=== PATIENT | male | born 1945 | race Caucasian/White ===

== ENCOUNTER 2018-01-15 14:25 | Emergency (ER) | payer MEDICARE, BC, SELFPAY ==
[2018-01-15] VITALS (29 sets, daily range): BP systolic 116–140; BP diastolic 61–99; PULSE 62–77; RESP 8–30; TEMP 36.8–36.9; O2SAT 96–99
--- NOTE | 2018-01-15 14:37 | DI.RAD_ITS ---
SYMPTOMS/DIAGNOSIS: CHEST PAIN, SHORTNESS OF BREATH, ? ACUTE DISEASE PA AND LATERAL CHEST: Comparison is made with 5Nov16. The heart size is normal. A pacemaker is noted, unchanged. The patient is status post CABG. The lungs show minimal right upper lobe scarring. IMPRESSION: No acute abnormality.
--- NOTE | 2018-01-15 14:40 | W.ED.GENAD ---
Discharge Plan Disposition Patient Disposition: HOME Condition: Stable Discharge Details Chief Complaint: SOB Clinical Impression: Dizziness, Dyspnea Primary Care Provider: Arianna Alvarado ED Provider: Haylie Cardozo Home Meds and New Rx's Prescriptions: Continue aspirin [Aspir-81] 81 MG tablet,delayed release (DR/EC) 1 tab PO DAILY RF: 0 ISOSORBIDE MONONITRATE 30 MG TAB.ER.24H 1 tab PO DAILY RF: 0 metformin 500 MG tablet 1,000 mg PO BID RF: 0 hydrocodone-acetaminophen 1 TAB tablet 1 tab PO Q6H PRNQty: 20 RF: 0 atorvastatin [Lipitor] 20 MG tablet 40 mg PO HS RF: 0 clopidogrel [Plavix] 75 mg Tablet 75 mg PO DAILY RF: 0 acetaminophen [Tylenol Extra Strength] 500 MG tablet 1,000 mg PO RF: 0 tamsulosin [Flomax] 0.4 MG capsule 0.4 mg PO DAILY Qty: 20 RF: 0 Discharge Instructions Instructions: Dizziness (ED) Additional Instructions: Take your regular medications as directed. Follow-up with your scheduled appointment with cardiology in 2 weeks. Call the cataloging assistant tomorrow to schedule an earlier appointment if indicated and to discuss interrogation of your pacemaker. Return immediately to the emergency department any worsening or new concerning symptoms. Discharge Data Discharge Physician: Haylie Cardozo Medical Decision Making 72-year-old male with a history of diabetes, CLL, Marcelo cell carcinoma, CABG, pacemaker, 3 cardiac stents who presents for an episode of vision closing in, dizziness and shortness of breath lasting 45 seconds prior to arrival. EKG on arrival notes a rate of 74, sinus, LAFB seen in previous, no acute ST elevation or depression, QTC 422, QRS 96. Patient states he has had no palpitations, chest pain, headache, unilateral weakness or numbness. Patient feels that his shortness of breath may have been due to anxiety due to the dizziness sensation. He denies any syncope. Presentation does not sound c/w ACS, arrhythmia, or cva. Normal heart rate, BP and oxygen saturation, brief episode of sob, no dvt/pe risk factors, so PE seems unlikely. Due to pt's history, will place an IV, labs, cxr, ekg. 1700 --labs and imaging reviewed and essentially unremarkable. Magnesium 1.6, will replete. First troponin negative. Chest x-ray and CT head negative. Plan is for second troponin and repeat EKG. 2845 --repeat troponin negative. EKG notes a rate of 66, sinus, LAFB, no acute ST elevation or depression. QTc 421. QRS 100. Patient has appointment with cardiology in 2 weeks. He is instructed to call them tomorrow to schedule an earlier follow-up appointment if indicated. Patient was instructed to discuss with cardiology evaluation or interrogation of his pacemaker related to any possible events today during his symptoms. Patient was instructed to return here with any worsening or new concerning symptoms. HPI General Mode of arrival: ambulatory. Date/Time Provider Initiated Documentation: 01/15/18 14:37. Limitations to Documentation: no limitations. Information obtained by: patient. HPI Narrative: Patient is a 72-year-old male with a history of CABG, 3 cardiac stents, diabetes, CLL, Marcelo cell carcinoma who is followed at the [facility] who presents for an episode of shortness of breath and sensation of vision closing in prior to arrival. Patient states he was walking in a store when the symptoms started lasted 45 seconds and then resolved. He denies any specific chest pain or palpitations. He denies any headache, blurry vision, double vision. Past medical history: Diabetes, CLL, Marcelo cell carcinoma Surgical history: CABG 2013, pacemaker, 3 cardiac stents Social history: Denies tobacco, alcohol or drugs Medications: See list Allergies: None PCP: [facility] Related Data Home Medications Medication Instructions Recorded Confirmed Isosorbide Mononitrate 1 tab PO DAILY 09/20/12 01/15/18 aspirin [Aspir-81] 1 tab PO DAILY 09/20/12 01/15/18 atorvastatin [Lipitor] 40 mg PO HS 12/26/15 01/15/18 metformin 1,000 mg PO BID tab-cap 07/05/16 01/15/18 acetaminophen [Tylenol Extra 1,000 mg PO 09/17/16 Strength] tamsulosin [Flomax] 0.4 mg PO DAILY #20 cap.er.24h 09/18/16 01/15/18 hydrocodone-acetaminophen 1 tab PO Q6H PRN #20 tab 09/22/16 clopidogrel [Plavix] 75 mg PO DAILY 01/15/18 01/15/18 Previous Rx's Medication Instructions Recorded tamsulosin [Flomax] 0.4 mg PO DAILY #20 cap.er.24h 09/18/16 Allergies Allergy/AdvReac Type Severity Reaction Status Date / Time No Known Allergies Allergy Unverified 01/15/18 15:14 Review of Systems Review of Systems All systems reviewed & are unremarkable except as noted in HPI and below Constitutional Denies chills, Denies excessive sweating, Denies fatigue, Denies fever(s), Denies weakness and Denies weight loss Eyes Reports system reviewed and no additional complaints, except as docu and Denies blurry vision ENT Denies vertigo, Denies dizziness, Denies otalgia, Denies nasal congestion, Denies sore throat and Denies throat swelling Cardiovascular Denies chest pain, Denies syncope, Reports rapid heart rate and Reports dyspnea Respiratory Reports dyspnea Gastrointestinal Denies abdominal pain, Denies diarrhea and Denies vomiting Genitourinary Denies hematuria, Denies dysuria and Denies flank pain Musculoskeletal Denies back pain and Denies joint swelling Integumentary/Breasts Denies lesions and Denies rash Neurologic Denies behavioral changes, Denies confusion, Denies vertigo, Denies dizziness, Denies syncope and Denies weakness Psychiatric Denies behavioral changes, Denies confusion and Denies depression Endocrine Denies excessive sweating and Denies fatigue Hematologic/Lymphatic Denies easy bruising and Denies lymphadenopathy Allergic/Immunologic Denies throat swelling PFSH Family History Mother Diabetes Heart disease Father Heart disease Social History Smoking/Tobacco Use Status: Never Exam Const General: cooperative and healthy appearing Orientation: alert and awake HENMT Head: normal to inspection Ears: hearing grossly normal bilaterally and external ears normal General nose exam: external nose normal Face and sinus: normal facial exam Mouth: oral mucosae normal Teeth and gingiva: dentition normal Throat: posterior oropharynx normal Eyes General: appearance normal, both eyes and all related structures Eyelids: eyelids normal EOM: EOM intact bilaterally Neck Neck: normal visual inspection Lymphatic: no lymphadenopathy noted Chest Chest: normal inspection of the chest Resp Effort & Inspection: normal respiratory effort and able to speak in complete sentences Auscultation: clear to auscultation bilaterally Cardio Rate: regular rate Rhythm: regular rhythm GI Inspection: normal to inspection Palpation: soft, not firm, no guarding, no hepatosplenomegaly, no masses and nontender Auscultation: normal bowel sounds Skin General skin exam: no rashes or lesions noted Neuro General: alert and awake Cognition: normal cognition Speech: speech normal Gait: normal gait Motor: muscle tone normal throughout Sensory Exam: no sensory deficits noted Extrem General: normal to inspection, full ROM, normal capillary refill and no edema Psych Appearance: grossly normal Mental Status: mental status grossly normal Speech and Movement: speech and movement normal Affect: normal affect Thought Process: normal
--- NOTE | 2018-01-15 14:44 | ED.GENADUL_ITS ---
Discharge Plan Disposition Patient Disposition: HOME Condition: Stable Discharge Details Chief Complaint: SOB Clinical Impression: Dizziness, Dyspnea Primary Care Provider: Arianna Alvarado ED Provider: Haylie Cardozo Home Meds and New Rx's Prescriptions: Continue aspirin [Aspir-81] 81 MG tablet,delayed release (DR/EC) 1 tab PO DAILY RF: 0 ISOSORBIDE MONONITRATE 30 MG TAB.ER.24H 1 tab PO DAILY RF: 0 metformin 500 MG tablet 1,000 mg PO BID RF: 0 hydrocodone-acetaminophen 1 TAB tablet 1 tab PO Q6H PRNQty: 20 RF: 0 atorvastatin [Lipitor] 20 MG tablet 40 mg PO HS RF: 0 clopidogrel [Plavix] 75 mg Tablet 75 mg PO DAILY RF: 0 acetaminophen [Tylenol Extra Strength] 500 MG tablet 1,000 mg PO RF: 0 tamsulosin [Flomax] 0.4 MG capsule 0.4 mg PO DAILY Qty: 20 RF: 0 Discharge Instructions Instructions: Dizziness (ED) Additional Instructions: Take your regular medications as directed. Follow-up with your scheduled appointment with cardiology in 2 weeks. Call the brine process operator tomorrow to schedule an earlier appointment if indicated and to discuss interrogation of your pacemaker. Return immediately to the emergency department any worsening or new concerning symptoms. Discharge Data Discharge Physician: Haylie Cardozo Medical Decision Making 72-year-old male with a history of diabetes, CLL, Marcelo cell carcinoma, CABG, pacemaker, 3 cardiac stents who presents for an episode of vision closing in, dizziness and shortness of breath lasting 45 seconds prior to arrival. EKG on arrival notes a rate of 74, sinus, LAFB seen in previous, no acute ST elevation or depression, QTC 422, QRS 96. Patient states he has had no palpitations, chest pain, headache, unilateral weakness or numbness. Patient feels that his shortness of breath may have been due to anxiety due to the dizziness sensation. He denies any syncope. Presentation does not sound c/w ACS, arrhythmia, or cva. Normal heart rate, BP and oxygen saturation, brief episode of sob, no dvt/pe risk factors, so PE seems unlikely. Due to pt's history, will place an IV, labs, cxr, ekg. 1700 --labs and imaging reviewed and essentially unremarkable. Magnesium 1.6, will replete. First troponin negative. Chest x-ray and CT head negative. Plan is for second troponin and repeat EKG. 2845 --repeat troponin negative. EKG notes a rate of 66, sinus, LAFB, no acute ST elevation or depression. QTc 421. QRS 100. Patient has appointment with cardiology in 2 weeks. He is instructed to call them tomorrow to schedule an earlier follow-up appointment if indicated. Patient was instructed to discuss with cardiology evaluation or interrogation of his pacemaker related to any possible events today during his symptoms. Patient was instructed to return here with any worsening or new concerning symptoms. HPI General Mode of arrival: ambulatory . Date/Time Provider Initiated Documentation: 01/15/18 14:37 . Limitations to Documentation: no limitations . Information obtained by: patient . HPI Narrative: Patient is a 72-year-old male with a history of CABG, 3 cardiac stents, diabetes, CLL, [place] cell carcinoma who is followed at the [facility] who presents for an episode of shortness of breath and sensation of vision closing in prior to arrival. Patient states he was walking in a store when the symptoms started lasted 45 seconds and then resolved. He denies any specific chest pain or palpitations. He denies any headache, blurry vision, double vision. Past medical history: Diabetes, CLL, Marcelo cell carcinoma Surgical history: CABG 2013, pacemaker, 3 cardiac stents Social history: Denies tobacco, alcohol or drugs Medications: See list Allergies: None PCP: [facility] Related Data Home Medications Medication Instructions Recorded Confirmed Isosorbide Mononitrate 1 tab PO DAILY 09/20/12 01/15/18 aspirin [Aspir-81] 1 tab PO DAILY 09/20/12 01/15/18 atorvastatin [Lipitor] 40 mg PO HS 12/26/15 01/15/18 metformin 1,000 mg PO BID tab-cap 07/05/16 01/15/18 acetaminophen [Tylenol Extra 1,000 mg PO 09/17/16 Strength] tamsulosin [Flomax] 0.4 mg PO DAILY #20 cap.er.24h 09/18/16 01/15/18 hydrocodone-acetaminophen 1 tab PO Q6H PRN #20 tab 09/22/16 clopidogrel [Plavix] 75 mg PO DAILY 01/15/18 01/15/18 Previous Rx's Medication Instructions Recorded tamsulosin [Flomax] 0.4 mg PO DAILY #20 cap.er.24h 09/18/16 Allergies Allergy/AdvReac Type Severity Reaction Status Date / Time No Known Allergies Allergy Unverified 01/15/18 15:14 Review of Systems Review of Systems All systems reviewed & are unremarkable except as noted in HPI and below Constitutional Denies chills, Denies excessive sweating, Denies fatigue, Denies fever(s), Denies weakness and Denies weight loss Eyes Reports system reviewed and no additional complaints, except as docu and Denies blurry vision ENT Denies vertigo, Denies dizziness, Denies otalgia, Denies nasal congestion, Denies sore throat and Denies throat swelling Cardiovascular Denies chest pain, Denies syncope, Reports rapid heart rate and Reports dyspnea Respiratory Reports dyspnea Gastrointestinal Denies abdominal pain, Denies diarrhea and Denies vomiting Genitourinary Denies hematuria, Denies dysuria and Denies flank pain Musculoskeletal Denies back pain and Denies joint swelling Integumentary/Breasts Denies lesions and Denies rash Neurologic Denies behavioral changes, Denies confusion, Denies vertigo, Denies dizziness, Denies syncope and Denies weakness Psychiatric Denies behavioral changes, Denies confusion and Denies depression Endocrine Denies excessive sweating and Denies fatigue Hematologic/Lymphatic Denies easy bruising and Denies lymphadenopathy Allergic/Immunologic Denies throat swelling PFSH Family History Mother Diabetes Heart disease Father Heart disease Social History Smoking/Tobacco Use Status: Never Exam Const General: cooperative and healthy appearing Orientation: alert and awake HENMT Head: normal to inspection Ears: hearing grossly normal bilaterally and external ears normal General nose exam: external nose normal Face and sinus: normal facial exam Mouth: oral mucosae normal Teeth and gingiva: dentition normal Throat: posterior oropharynx normal Eyes General: appearance normal, both eyes and all related structures Eyelids: eyelids normal EOM: EOM intact bilaterally Neck Neck: normal visual inspection Lymphatic: no lymphadenopathy noted Chest Chest: normal inspection of the chest Resp Effort & Inspection: normal respiratory effort and able to speak in complete sentences Auscultation: clear to auscultation bilaterally Cardio Rate: regular rate Rhythm: regular rhythm GI Inspection: normal to inspection Palpation: soft, not firm, no guarding, no hepatosplenomegaly, no masses and nontender Auscultation: normal bowel sounds Skin General skin exam: no rashes or lesions noted Neuro General: alert and awake Cognition: normal cognition Speech: speech normal Gait: normal gait Motor: muscle tone normal throughout Sensory Exam: no sensory deficits noted Extrem General: normal to inspection, full ROM, normal capillary refill and no edema Psych Appearance: grossly normal Mental Status: mental status grossly normal Speech and Movement: speech and movement normal Affect: normal affect Thought Process: normal
[2018-01-15 14:52] LABS: Abs Immature Grans 0.01 k/cumm (0.0-0.09); Absolute Basophil Count 0.02 k/cumm (0.0-0.2); Absolute Eosinophil Count 0.16 k/cumm (0.0-0.7); Absolute Lymphocyte Count 0.51 k/cumm (1.2-3.4); Absolute Monocyte Count 0.42 k/cumm (0.11-0.7); Absolute Neutrophil Count 3.39 k/cumm (1.2-6.7); Basophils % 0.4; Eosinophils % 3.5; HCT 41.8 % (40.0-50.0); HGB 14.5 g/dL (13.5-17.5); Immature Grans % 0.2; Lymphocytes % 11.3; Mean Corp. HGB Concentration 34.7 g/dL (32.0-36.0); Mean Corpuscular Hemoglobin 31.5 pg (27.0-33.0); Mean Corpuscular Volume 90.9 fL (80-95); Mean Platelet Volume 9.7 fL (8.0-11.0); Monocytes % 9.3; Neutrophils % 75.3; Platelet Count 105 x1000/uL (130-400); RBC Distribution Width 13.5 % (11.8-14.1); White Blood Cell Count 4.51 k/cumm (4.4-10.8)
[2018-01-15 15:12] LABS: ALT 32 U/L (12-78); AST 19 U/L (15-37); Albumin 4.1 g/dL (3.4-5.0); Alkaline Phosphatase 102 U/L (46-116); Anion Gap 9.6 mmol/L (3-11); BUN 14 mg/dL (7-18); Bilirubin, Total 1.1 mg/dL (0.2-1.0); CO2 27.4 mmol/L (21.0-32.0); CREATININE 1.11 mg/dL (0.70-1.30); Calcium 9.2 mg/dL (8.5-10.1); Chloride 104 mmol/L (98-107); Glucose 114 mg/dL (70-100); Magnesium 1.6 mg/dL (1.8-2.4); Sodium 141 mmol/L (136-145); Total Protein 6.7 g/dL (6.4-8.2)
[2018-01-15 15:13] LABS: Troponin I < 0.02 ng/mL (0.00-0.06)
[2018-01-15] MEDS: MAGNESIUM SULFATE 1 GM/100 ML BAG IVPB (15:38)
--- NOTE | 2018-01-15 16:34 | DI.VRAD_ITS ---
EXAM: XR Chest, 2 Views EXAM DATE/TIME: 01/15/2018 4:04 PM CLINICAL HISTORY: 72 years old, male; Signs and symptoms; Other: Chest apin, SOB, R/O acute disease; Prior surgery; Surgery date: 6+ months; Surgery type: Triple bypass TECHNIQUE: XR of the chest, 2 views. COMPARISON: CR CHEST 2 VIEWS PA,LAT 12/26/2015 10:43 PM FINDINGS: Tubes, catheters and devices: Atrioventricular pacemaker. Lungs: Hyperinflation, without acute airspace disease. Pleural space: No pleural effusion. Heart/Mediastinum: Normal configuration of the heart. Bones/joints: Degenerative change. Median sternotomy. When correlating with the previous study, no significant interval changes are present. IMPRESSION: Hyperinflation, without acute airspace or pleural disease. Dictated and Authenticated by: Steve West MD. Ordering:JOBY ANNA MD
--- NOTE | 2018-01-15 16:52 | DI.CT_ITS ---
SYMPTOM/DIAGNOSIS: VISION DISTURBANCE, R/O ACUTE CVA NONCONTRAST HEAD CT: Comparison is made with 03 Jan 2016. 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 No acute infarct, hemorrhage or mass is seen. There is atrophy consistent with the patient's age. There are mild small vessel changes in the white matter. An additional area of old infarct is seen in the left occipital lobe, posterior to the left lateral ventricle. There is no evidence of skull fracture. The sinuses and mastoid air cells appear clear where visualized. IMPRESSION: No acute abnormality.
--- NOTE | 2018-01-15 17:52 | DI.VRAD_ITS ---
EXAM: CT Head Without Intravenous Contrast EXAM DATE/TIME: 01/15/2018 4:53 PM CLINICAL HISTORY: 72 years old, male; Signs and symptoms; Visual disturbance; Patient HX: Vision disturbance; Per PT: Stroke 2 years ago; Additional info: R/O acute CVA TECHNIQUE: Axial computed tomography images of the head/brain without intravenous contrast. Coronal and sagittal reformatted images were created and reviewed. COMPARISON: CT HEAD WITHOUT STROKE PROTOCOL 01/03/2016 9:57 PM FINDINGS: Brain: Global cerebral atrophy consistent with patient's age. There is mild diffuse heterogeneity of the white matter attenuation, consistent with chronic white matter ischemic changes. Encephalomalacia within the left occipital lobe consistent with old stroke. No CT scan evidence of acute stroke. No intracranial hemorrhage. No mass effect. Ventricles: Unremarkable. No ventriculomegaly. Bones/joints: Unremarkable. No acute fracture. Sinuses: Normal as visualized. No acute sinusitis. Mastoid air cells: Normal as visualized. No mastoid effusion. Soft tissues: Unremarkable. 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 IMPRESSION: No acute abnormality. Dictated and Authenticated by: Hao Riojas MD. Ordering:JOBY ANNA MD
[2018-01-15 18:35] LABS: Troponin I < 0.02 ng/mL (0.00-0.06)
== END 2018-01-15 19:35 | disposition home or self-care (01) ==
PROVIDERS: Emergency Provider Physician Assistant; PCP Family Medicine
DX: R42 Dizziness and giddiness (principal); E11.9 Type 2 diabetes mellitus without complications; Z79.84 Long term (current) use of oral hypoglycemic drugs; Z95.5 Presence of coronary angioplasty implant and graft; Z95.1 Presence of aortocoronary bypass graft
CPT/HCPCS: 36415; 80053; 93005; 96374; 99285; 70450; 71046; 83735; 84484; 85025; 93010; J3475

== ENCOUNTER 2021-04-09 15:30 | Outpatient (CLI) | payer MEDICARE, BC, SELFPAY | END 2021-04-09 15:31 | disposition home or self-care (01) | LOC: LBO 04-11 20:47 | PROVIDERS: Visit Provider Radiology Radiation Oncology | DX: C61 Malignant neoplasm of prostate (principal) | CPT/HCPCS: 36415; 84153 ==

== ENCOUNTER 2021-05-05 02:38 | Outpatient (CLI) | payer MEDICARE, BC, SELFPAY ==
[2021-05-06 17:50] LABS: PSA, Ultrasensitive 7.5 ng/mL (<= 6.5)
== END 2021-05-05 02:39 | disposition home or self-care (01) ==
LOC: LBO 02:38
PROVIDERS: Visit Provider Radiology Radiation Oncology
DX: C61 Malignant neoplasm of prostate (principal)
CPT/HCPCS: 36415; 84153

== ENCOUNTER → 2021-05-12 00:34 | Outpatient (CLI) | payer OTHER, SELFPAY ==
--- NOTE | 2021-05-12 | DI.RAD_ITS ---
Exam(s) XR LUMBAR SPINE AP, LAT EXAM: XR LUMBAR SPINE AP, LAT CLINICAL HISTORY: S/P FALL, RT BACK PAIN,[id number]. TECHNIQUE: 2D digital imaging was performed. COMPARISON: No exams were available for comparison FINDINGS: 3 views There is a compression fracture of superior endplate of L1, age indeterminate. There is approximatel y 20 percent height loss. No other compression fractures. Advanced chronic disc space narrowing at L4-5 and L5-S1 levels is noted. Also some facet arthropathy evident at the lower 3 levels. Sacroili ac joints appear unremarkable. No osseous lesions. IMPRESSION: Vertebral height loss at L1 as described above Chronic disc space narrowing at L4-5 and L5-S1 levels. DATA REPOSITORY: RADIATION DOSE DELIVERED:
--- NOTE | 2021-05-12 14:52 | DI.RAD_ITS ---
Exam(s) XR THORACIC SPINE COMPLETE EXAM: XR THORACIC SPINE COMPLETE CLINICAL HISTORY: RT BACK PAIN, S/P FALL.[id number]. TECHNIQUE: 2D digital imaging was performed. COMPARISON: No exams were available for comparison FINDINGS: 3 views Compression fracture L1 superior endplate. There are no compression fractures in the thoracic verteb ral bodies nor prominent disc space narrowing. Some asymmetric narrowing of the T10-11 disc space is noted. No significant scoliosis. Sternotomy wires and bipolar left subclavian pacemaker leads noted. IMPRESSION: DATA REPOSITORY: RADIATION DOSE DELIVERED:
== END ==
PROVIDERS: Visit Provider Internal Medicine
DX: M54.51 Vertebrogenic low back pain (principal); S32.010A Wedge compression fracture of first lumbar vertebra, initial encounter for closed fracture; W19.XXXA Unspecified fall, initial encounter
CPT/HCPCS: 72072; 72100

== ENCOUNTER 2021-05-27 14:52 | Emergency (ER) | payer OTHER, SELFPAY ==
[2021-05-27 14:59] VITALS: BP 146/78; PULSE 72; RESP 16; TEMP 37.3; O2SAT 96
--- NOTE | 2021-05-27 16:00 | DI.RAD_ITS ---
Exam(s) XR LUMBAR SPINE COMPLETE EXAM: XR LUMBAR SPINE COMPLETE CLINICAL HISTORY: s/p fall, r/o acute fracture. TECHNIQUE: 2D digital imaging was performed of the lumbar spine. Five images were obtained. AP, la teral, right oblique, left oblique and L5-S1 spot views were obtained. COMPARISON: CR XR LUMBAR SPINE AP, LAT from 05/12/2021 FINDINGS: BONES: There is a stable L1 compression fracture deformity. No acute fracture is identified. Endpla te osteophytes are present throughout the lumbar spine. Facet arthropathy is seen in the lower lumba r spine. DISKS: There is disc space narrowing at L4-5 and L5-S1. ALIGNMENT: Lumbar spinal alignment is within normal limits. No spondylolysis or spondylolisthesis. SOFT TISSUE: Atherosclerosis is present. IMPRESSION: 1. Stable L1 compression fracture deformity. 2. No acute fracture or subluxation. DATA REPOSITORY: RADIATION DOSE DELIVERED:
--- NOTE | 2021-05-27 16:10 | ED.GENADUL_ITS ---
Discharge Plan Disposition Patient Disposition: HOME Condition: Stable Discharge Details Clinical Impression: Sciatica, History of vertebral compression fracture Primary Care Provider: Unknown,Unknown ED Provider: Haylie Cardozo Home Meds and New Rx's Prescriptions: New methocarbamol 500 mg tablet 500 mg PO Q6H PRN (Reason: muscle spasm) Qty: 14 0RF prednisone 20 mg tablet 40 mg PO DAILY 3 Days Qty: 6 0RF Continued aspirin [Aspir-81] 81 MG tablet,delayed release (DR/EC) 1 tab PO DAILY 0RF ISOSORBIDE MONONITRATE 30 MG TAB.ER.24H 1 tab PO DAILY 0RF metformin 500 MG tablet 1,000 mg PO BID 0RF Label Comments: changed to glipizide atorvastatin [Lipitor] 20 MG tablet 40 mg PO HS 0RF Label Comments: 02/11/16- Takes 40mg qHS. aj clopidogrel [Plavix] 75 mg Tablet 75 mg PO DAILY 0RF cholecalciferol (vitamin D3) [Vitamin D3] 50 mcg (2,000 unit) Capsule 50 mcg PO DAILY 0RF cyanocobalamin (vitamin B-12) 100 mcg Tablet 100 mcg PO DAILY 0RF glipizide 2.5 mg Tablet Extended Release 24 Hr 2.5 mg PO DAILY 0RF losartan 50 mg Tablet 50 mg PO DAILY 0RF metoprolol tartrate 25 mg Tablet 25 mg PO BID 0RF nitroglycerin 0.4 mg Tablet, Sublingual 0.4 mg sublingual DIRECTED PRN0RF timolol 0.25 % Drops 1 - 2 drp ophthalmic (eye) BID 0RF tramadol 50 mg Tablet 50 mg PO BID PRN0RF acetaminophen [Tylenol Extra Strength] 500 MG tablet 1,000 mg PO PRN PRN0RF tamsulosin [Flomax] 0.4 MG capsule 0.4 mg PO DAILY Qty: 20 0RF Label Comments: not taking Discharge Instructions Instructions: Sciatica (ED) Additional Instructions: Your x-ray today noted a stable lumbar spine #1 compression fracture. This was also noted on a lumbar spine x-ray you had on 05/12/2021. It is unclear if this compression fracture is a result of your recent fall or from a previous injury. Recommended treatment for a vertebral compression fracture including pain control and rest. Your symptoms today may be a combination of degenerative disc disease, a previous vertebral compression fracture, sciatica and muscle strain or spasm. It is recommended to alternate ice and heat and take Tylenol as needed and directed for pain. You are also being sent home with a prescription for steroids to take as directed until finished. Steroids can raise your blood sugar to be sure to limit the amount of sugar in your diet and check your sugar regularly. You are also being sent home with a prescription for muscle relaxers to take as needed and directed for pain. Continue to take your tramadol as needed and directed for pain. Follow-up with your primary care doctor for reevaluation and for referral to orthopedics if your symptoms do not improve or worsen. Return immediately to the emergency department if you develop any worsening or new concerning symptoms. Referrals: Albino Alfredo MD [ [facility] STAFF PHYSICIAN] - Discharge Data Discharge Date/Time-TO BE ENTERED AT DEPARTURE: 05/27/21 18:37 Discharge Physician: Haylie Cardozo Medical Decision Making 75-year-old male with a history of atrial fibrillation on Eliquis presents for right-sided lower back pain for the past month status post slip and fall on ice now with worsening pain into his right buttock and right thigh for the past few days. Vitals within normal limits. Patient appears uncomfortable but nontoxic. He has tenderness palpation along the right lumbar paraspinal and right buttock region. There is no evidence of trauma, cellulitis or rash. He is neurovascular intact. Differential diagnosis includes vertebral compression fracture, muscle strain, sciatica, disc herniation. History and presentation does not appear consistent with cauda equina syndrome. Will obtain a lumbar spine x-ray and give a dose of p.o. prednisone, p.o. Valium, p.o. oxycodone and reassess. Xray reviewed and notes a stable L1 compression fracture deformity. Review of records note that patient had a lumbar spine x-ray on 05/12/21 after his fall wh ich noted similar findings with age indeterminate L1 compression fracture. Discussed with patient that unclear if this is from his injury 1 month ago or an older injury. Discussed that as he has no focal deficits or cauda equina symptoms, do not see an indication for additional imaging at this time and he is agreeable. Patient reassessed and he feels much better. Will send home with prescriptions for steroids and muscle relaxers. He is advised to continue his tramadol for breakthrough pain. Advised to follow up with the primary care doctor for re-evaluation. Usual and customary return precautions given prior to discharge. Medical Records Medical records reviewed: Yes I reviewed the patient's medical records. Imaging Data Radiologic Study: Radiologist's impression: XR LUMBAR SPINE COMPLETE CLINICAL HISTORY: ? s/p fall, r/o acute fracture.? TECHNIQUE:? 2D digital imaging was performed of the lumbar spine.? Five images were obtained.? AP, lateral, right oblique, left oblique and L5-S1 spot views were obtained. COMPARISON:? CR XR LUMBAR SPINE AP, LAT from 05/12/2021 FINDINGS: BONES: There is a stable L1 compression fracture deformity.? No acute fracture is identified.? Endplate osteophytes are present throughout the lumbar spine.? Facet arthropathy is seen in the lower lumbar spine.? DISKS: There is disc space narrowing at L4-5 and L5-S1. ALIGNMENT: Lumbar spinal alignment is within normal limits. No spondylolysis or spondylolisthesis. SOFT TISSUE: Atherosclerosis is present.? IMPRESSION: 1. Stable L1 compression fracture deformity. 2. No acute fracture or subluxation.? HPI General Mode of arrival: ambulatory . Date/Time Provider Initiated Documentation: 05/27/21 15:29 . Limitations to Documentation: no limitations . Information obtained by: patient . HPI Narrative: Patient is a 75-year-old male with a history of atrial fibrillation on Eliquis, diabetes, hyperlipidemia and pacemaker presents with right-sided lower back pain for the past month, worse over the past 4 days. Patient states he slipped on ice and fell directly onto his right lower back 1 month ago. Patient states that he has had right-sided lower back pain for the past month but states the past 4 days the pain has been worse now extending to his right buttock and his right thigh. He states the pain is worse with any movement or walking. He states he talked to his PCP a few days ago and they prescribed tramadol that he is taken with some relief. He his last dose of tramadol was yesterday. He denies any bowel or bladder incontinence, saddle anesthesia, leg weakness or numbness. He denies any urinary symptoms. Related Data Home Medications Medication Instructions Recorded Confirmed Isosorbide Mononitrate 1 tab PO DAILY 09/20/12 05/27/21 aspirin 81 mg tablet,delayed 1 tab PO DAILY 09/20/12 05/27/21 release (Aspir-) atorvastatin 20 mg tablet (Lipitor) 40 mg PO HS 12/26/15 05/27/21 metformin 500 mg tablet 1,000 mg PO BID tab-cap 07/05/16 01/15/18 acetaminophen 500 mg tablet 1,000 mg PO PRN PRN 09/17/16 05/27/21 (Tylenol Extra Strength) tamsulosin 0.4 mg capsule (Flomax) 0.4 mg PO DAILY #20 cap.er.24h 09/18/16 01/15/18 clopidogrel 75 mg tablet (Plavix) 75 mg PO DAILY 01/15/18 05/27/21 cholecalciferol (vitamin D3) 50 50 mcg PO DAILY 05/27/21 05/27/21 mcg (2,000 unit) capsule (Vitamin D3) cyanocobalamin (vitamin B-12) 100 100 mcg PO DAILY 05/27/21 05/27/21 mcg tablet glipizide 2.5 mg tablet, extended 2.5 mg PO DAILY 05/27/21 05/27/21 release 24 hr losartan 50 mg tablet 50 mg PO DAILY 05/27/21 05/27/21 methocarbamol 500 mg tablet 500 mg PO Q6H PRN #14 tab 05/27/21 metoprolol tartrate 25 mg tablet 25 mg PO BID 05/27/21 05/27/21 nitroglycerin 0.4 mg sublingual 0.4 mg SUBLINGUAL DIRECTED PRN 05/27/21 05/27/21 tablet prednisone 20 mg tablet 40 mg PO DAILY 3 Days #6 tab 05/27/21 timolol 0.25 % eye drops 1 - 2 drp OPHTHALMIC (EYE) BID 05/27/21 05/27/21 tramadol 50 mg tablet 50 mg PO BID PRN 05/27/21 05/27/21 Previous Rx's Medication Instructions Recorded tamsulosin 0.4 mg capsule (Flomax) 0.4 mg PO DAILY #20 cap.er.24h 09/18/16 methocarbamol 500 mg tablet 500 mg PO Q6H PRN #14 tab 05/27/21 prednisone 20 mg tablet 40 mg PO DAILY 3 Days #6 tab 05/27/21 Allergies Allergy/AdvReac Type Severity Reaction Status Date / Time No Known Allergies Allergy Unverified 05/27/21 15:13 General Stated Complaint: Nk/Back Pain TIFFANIE: 3 Review of Systems All systems reviewed & are unremarkable except as noted in HPI and below Constitutional Constitutional: Reports as per HPI, Denies chills, Denies excessive sweating, Denies fatigue and Denies fever(s) Eyes Eyes: Denies blurry vision ENT Ears, Nose, Mouth, and Throat: Denies dizziness, Denies sore throat and Denies throat swelling Cardiovascular Cardiovascular: Denies chest pain and Denies dyspnea Respiratory Respiratory: Denies cough and Denies dyspnea Gastrointestinal Gastrointestinal: Denies abdominal pain, Denies diarrhea and Denies vomiting Genitourinary Genitourinary: Denies hematuria and Denies dysuria Musculoskeletal Musculoskeletal: Reports back pain and Denies numbness Integumentary/Breasts Skin/Breast: Denies lesions and Denies rash Neurologic Neurologic: Denies behavioral changes, Denies confusion, Denies dizziness, Denies localized weakness and Denies numbness Psychiatric Psychiatric: Denies behavioral changes, Denies confusion and Denies depression Endocrine Endocrine: Denies excessive sweating and Denies fatigue Hematologic/Lymphatic Hematologic/Lymphatic: Denies easy bruising and Denies lymphadenopathy Allergic/Immunologic Allergic/Immunologic: Denies throat swelling PFSH All Active Problems (Updated 05/27/21 @ 18:19 by Haylie Cardozo DO) Sciatica (Acute) History of vertebral compression fracture (Acute) Medical History (Updated 05/27/21 @ 18:19 by Haylie Cardozo DO) Atrial fibrillation DM w/o complication type II, uncontrolled HTN (hypertension) Hx of hyperlipidemia Pacemaker Surgical History (Updated 05/27/21 @ 16:41 by Haylie Cardozo DO) History of knee surgery Family History Mother Diabetes Heart disease Father Heart disease Social History Smoking/Tobacco Use Status: Former Tobacco Use Quit Date: 02/20/73 Smoking risk assessment performed?: Yes Alcohol Intake: current Alcohol Intake frequency: holidays/special occasions only Drug use: Never Do you feel safe at home: Yes Do you feel safe in your relationship?: Yes Exam Const General: cooperative and healthy appearing Orientation: alert, awake and oriented x3 HENMT Head: normal to inspection Ears: hearing grossly normal bilaterally and external ears normal General nose exam: external nose normal Eyes General: appearance normal, both eyes and all related structures Eyelids: eyelids normal Pupils: PERRL EOM: EOM intact bilaterally Neck Neck: normal visual inspection Lymphatic: no lymphadenopathy noted Chest Chest: normal inspection of the chest Resp Effort & Inspection: normal respiratory effort and able to speak in complete sentences Auscultation: clear to auscultation bilaterally Cardio Rate: regular rate Rhythm: regular rhythm GI Inspection: normal to inspection Palpation: soft, not firm, no guarding, no hepatosplenomegaly, no masses and nontender Auscultation: normal bowel sounds Back/Spine/Pelvis Thoracic/Lumbar Spine: thoracic and lumbar spine normal to inspection, paraspinal tenderness (Right lumbar) and No lumbar spinal tenderness Pelvis: no pain with anterior-posterior compression Skin General skin exam: no rashes or lesions noted Neuro General: patient alert and patient awake Cognition: normal cognition Speech: speech normal Gait: normal gait Motor: muscle tone normal throughout Sensory Exam: no sensory deficits noted DTR's: Rt Patellar: 1+, Lt Patellar: 1+, Rt Ankle: 1+ and Lt Ankle: 1+ Plantar Reflexes: Equivocal: bilateral (negative babinski b/l ) Extrem General: normal to inspection, full ROM and capillary refill normal Other: Bilateral DP/PT pulses intact. Psych Appearance: grossly normal Mental Status: mental status grossly normal Speech and Movement: speech and movement normal Affect: normal affect Thought Process: normal Course Vital Signs Vital signs: Vital Signs Temperature 99.1 F 05/27/21 14:59 Pulse 72 05/27/21 14:59 Respiratory Rate 16 05/27/21 14:59 Blood Pressure 146/78 H 05/27/21 14:59 Pulse Oximetry 96 05/27/21 14:59 Temperature 99.1 F 05/27/21 14:59 Temperature Source Skin 05/27/21 14:59 Pulse 72 05/27/21 14:59 Respiratory Rate 16 05/27/21 14:59 Respiratory Effort 05/27/21 15:27 Blood Pressure 146/78 H 05/27/21 14:59 Pulse Oximetry 96 05/27/21 14:59 Oxygen Delivery Method Room Air 05/27/21 14:59 Oxygen Flow Rate 0 05/27/21 14:59 Pain Level 8 05/27/21 14:59
[2021-05-27] MEDS: oxyCODONE 5 MG TAB PO (16:35)
[2021-05-27] MEDS: predniSONE 20 MG TAB 60 MG PO (16:35)
[2021-05-27] MEDS: diazePAM 5 MG TAB PO (16:36)
[2021-05-27 17:27] VITALS: BP 112/67; PULSE 62; TEMP 37.1; O2SAT 95
[2021-05-27] MEDS: Methocarbamol 500 MG TAB 1000 MG PO (18:30)
== END 2021-05-27 18:37 | disposition home or self-care (01) ==
PROVIDERS: Emergency Provider Physician Assistant
DX: M54.41 Lumbago with sciatica, right side (principal); S32.010A Wedge compression fracture of first lumbar vertebra, initial encounter for closed fracture; X58.XXXA Exposure to other specified factors, initial encounter
CPT/HCPCS: 99283; 72110; J7512

== ENCOUNTER 2021-10-04 09:27 | Emergency (ER) | payer OTHER, SELFPAY ==
[2021-10-04 09:33] VITALS: BP 167/73; PULSE 71; RESP 18; TEMP 36.7; O2SAT 98
[2021-10-04 09:45] VITALS: RESP 18
--- NOTE | 2021-10-04 09:49 | W.ED.GENAD ---
Discharge Plan Disposition Patient Disposition: HOME Condition: Stable Discharge Details Clinical Impression: Foot pain, right Primary Care Provider: Unknown,Unknown ED Provider: Rogers Sethi Home Meds and New Rx's Prescriptions: Continued aspirin [Aspir-81] 81 MG tablet,delayed release (DR/EC) 1 tab PO DAILY ISOSORBIDE MONONITRATE 30 MG TAB.ER.24H 1 tab PO DAILY metformin 500 MG tablet 1,000 mg PO BID Label Comments: changed to glipizide atorvastatin [Lipitor] 20 MG tablet 80 mg PO HS Label Comments: 02/11/16- Takes 40mg qHS. aj clopidogrel [Plavix] 75 mg Tablet 75 mg PO DAILY cholecalciferol (vitamin D3) [Vitamin D3] 50 mcg (2,000 unit) Capsule 50 mcg PO DAILY cyanocobalamin (vitamin B-12) 100 mcg Tablet 100 mcg PO DAILY glipizide 2.5 mg Tablet Extended Release 24 Hr 5 mg PO DAILY losartan 50 mg Tablet 50 mg PO DAILY metoprolol tartrate 25 mg Tablet 25 mg PO BID nitroglycerin 0.4 mg Tablet, Sublingual 0.4 mg sublingual DIRECTED PRN timolol 0.25 % Drops 1 - 2 drp ophthalmic (eye) BID tramadol 50 mg Tablet 50 mg PO BID PRN methocarbamol 500 mg tablet 500 mg PO Q6H PRN (Reason: muscle spasm) Qty: 14 0RF acetaminophen [Tylenol Extra Strength] 500 MG tablet 1,000 mg PO PRN PRN tamsulosin [Flomax] 0.4 MG capsule 0.4 mg PO DAILY Qty: 20 0RF Label Comments: not taking isosorbide mononitrate 30 mg Tablet Extended Release 24 Hr 30 mg PO DAILY Discharge Instructions Additional Instructions: you're likely having pain due to an inflammed cyst in the foot if pain is not improving in a week follow up with your primary care provider you can take tylenol and ibuprofen as needed, follow dosing instructions on packaging if you feel more ill, have fevers or severe worsening pain return to the emergency department Medical Decision Making 76 yo male with hx of hhld, dm, htn, comes in with pain in the plantar surface of his right foot that started around 4am. He denies any falls or trauma and had no pain yesterday. He localizes the pain to the mid plantar surface, has no swelling and normal sensation in his foot. He does have a soft mobile approximately 3cm subcutaneous nodule where he has pain and seems to be a cyst. HE has no breaks in the skin, no erythema or warmth, no findings to suggest cellulitis or abscess. Will obtain xray to evaluate for possible stress fracture but most likely is a cyst based on exam. xray unremarkable, he is sleeping on reassessment and awakens easily to voice. Discussed with pt and he is stable for d/c, suspect cyst, advised should resolve on it's own but if not improving in a week see pcp Differential Diagnosis Differential Diagnosis: ganglion cyst, plantar fascitis Imaging Data Radiologic Study: Attestation: I personally reviewed and interpreted this imaging study as follows: Imaging: X-Ray My impression: no acute findings HPI General Mode of arrival: ambulatory. Date/Time Provider Initiated Documentation: 10/04/21 09:27. Limitations to Documentation: no limitations. Information obtained by: patient. History of Present Illness 76 year old M presents to the emergency department with the chief complaint of right foot pain, described as moderate, Quality is described as aching, and is localized to the right and lower extremity. Patient reports no radiation. Patient started experiencing this hour(s) (5) and it has been constant. Rest improves symptom(s), Movement worsens symptoms . Patient notes no other symptoms.. Patient did receive the following treatments prior to arrival, none Related Data Home Medications Medication Instructions Recorded Confirmed Isosorbide Mononitrate 1 tab PO DAILY 09/20/12 05/27/21 aspirin 81 mg tablet,delayed 1 tab PO DAILY 09/20/12 10/04/21 release (Aspir-) atorvastatin 20 mg tablet (Lipitor) 80 mg PO HS 12/26/15 05/27/21 metformin 500 mg tablet 1,000 mg PO BID 07/05/16 01/15/18 acetaminophen 500 mg tablet 1,000 mg PO PRN PRN 09/17/16 05/27/21 (Tylenol Extra Strength) tamsulosin 0.4 mg capsule (Flomax) 0.4 mg PO DAILY ##20 09/18/16 10/04/21 clopidogrel 75 mg tablet (Plavix) 75 mg PO DAILY 01/15/18 10/04/21 cholecalciferol (vitamin D3) 50 50 mcg PO DAILY 05/27/21 10/04/21 mcg (2,000 unit) capsule (Vitamin D3) cyanocobalamin (vitamin B-12) 100 100 mcg PO DAILY 05/27/21 10/04/21 mcg tablet glipizide 2.5 mg tablet, extended 5 mg PO DAILY 05/27/21 05/27/21 release 24 hr losartan 50 mg tablet 50 mg PO DAILY 05/27/21 10/04/21 methocarbamol 500 mg tablet 500 mg PO Q6H PRN muscle spasm #14 05/27/21 tabs metoprolol tartrate 25 mg tablet 25 mg PO BID 05/27/21 10/04/21 nitroglycerin 0.4 mg sublingual 0.4 mg sublingual DIRECTED PRN 05/27/21 10/04/21 tablet timolol 0.25 % eye drops 1 - 2 drp ophthalmic (eye) BID 05/27/21 10/04/21 tramadol 50 mg tablet 50 mg PO BID PRN 05/27/21 05/27/21 isosorbide mononitrate 30 mg 30 mg PO DAILY 10/04/21 10/04/21 tablet,extended release 24 hr Previous Rx's Medication Instructions Recorded tamsulosin 0.4 mg capsule (Flomax) 0.4 mg PO DAILY ##20 09/18/16 methocarbamol 500 mg tablet 500 mg PO Q6H PRN muscle spasm #14 05/27/21 tabs Allergies Allergy/AdvReac Type Severity Reaction Status Date / Time No Known Allergies Allergy Unverified 10/04/21 09:36 General Stated Complaint: Vascular TIFFANIE: 3 Review of Systems All systems reviewed & are unremarkable except as noted in HPI and below Constitutional Constitutional: Denies chills, Denies fever(s) and Denies weakness Cardiovascular Cardiovascular: Denies chest pain and Denies dyspnea Respiratory Respiratory: Denies cough and Denies dyspnea Gastrointestinal Gastrointestinal: Denies abdominal pain, Denies nausea and Denies vomiting Musculoskeletal Musculoskeletal: Denies joint swelling Integumentary/Breasts Skin/Breast: Denies rash Neurologic Neurologic: Denies weakness PFSH All Active Problems (Updated 10/04/21 @ 10:39 by Rogers Sethi MD) Foot pain, right (Acute) Medical History (Updated 10/04/21 @ 10:39 by Rogers Sethi MD) Atrial fibrillation DM w/o complication type II, uncontrolled HTN (hypertension) Hx of hyperlipidemia Pacemaker Surgical History (Updated 05/27/21 @ 16:41 by Haylie Cardozo DO) History of knee surgery Family History Mother Diabetes Heart disease Father Heart disease Social History Smoking/Tobacco Use Status: Former Tobacco Use Quit Date: 02/20/73 Smoking risk assessment performed?: Yes Alcohol Intake: current Alcohol Intake frequency: holidays/special occasions only Drug use: Never Substance use type: does not use Do you feel safe at home: Yes Do you feel safe in your relationship?: Yes Exam Const General: no acute distress Orientation: alert HENMT Head: normal to inspection Ears: external ears normal General nose exam: external nose normal Mouth: moist mucous membranes Eyes General: appearance normal, both eyes and all related structures Neck Neck: normal visual inspection Resp Effort & Inspection: normal respiratory effort and able to speak in complete sentences Cardio Rate: regular rate Skin General skin exam: no rashes or lesions noted Neuro General: patient alert and patient oriented x3 Extrem General: full ROM and capillary refill normal Psych Mental Status: mental status grossly normal Course Vital Signs Vital signs: Vital Signs Temperature 36.7 C 10/04/21 09:33 Pulse 71 10/04/21 09:33 Respiratory Rate 18 10/04/21 09:33 Blood Pressure 167/73 H 10/04/21 09:33 Pulse Oximetry 98 10/04/21 09:33 Temperature 36.7 C 10/04/21 09:33 Pulse 71 10/04/21 09:33 Respiratory Rate 18 10/04/21 09:33 Respiratory Effort Non-Labored 10/04/21 09:45 Respiratory Depth Normal 10/04/21 09:45 Respiratory Pattern Normal 10/04/21 09:45 Blood Pressure 167/73 H 10/04/21 09:33 Blood Pressure Position Sitting 10/04/21 09:33 Pulse Oximetry 98 10/04/21 09:33 Oxygen Delivery Method Room Air 10/04/21 09:33 Oxygen Flow Rate 0 10/04/21 09:33 PAWSS Have you Been Recently Intoxicated or Drunk Within the Last 30 days?: No Have you Ever Experienced Previous Episodes of Alcohol Withdrawal?: No Have you ever Experienced Withdrawal Seizures?: No Have you ever Experienced Delirium Tremens(DT)s?: No Have you ever undergone Alcohol Rehabilitation Treatment (i.e, inpt ot outpatient treatment programs)?: No Have you ever Experienced Blackouts?: No Have you ever Combined Alcohol with other Downers within the last 90 days?: No Have you ever Combined Alcohol with any other Substance of Abuse during the last 90 days?: No Positive Blood Alcohol level on Presentation? [PCS.BAL]: No Evidence of Increased Autonomic Activity (i.e. HR>120, tremor, sweating, agitation, nausea)?: No Result: 0
[2021-10-04] MEDS: Acetaminophen 500 MG TAB 1000 MG PO (10:01)
--- NOTE | 2021-10-04 10:16 | DI.RAD_ITS ---
Exam(s) XR FOOT RT COMPLETE EXAM: XR FOOT RT COMPLETE CLINICAL HISTORY: pain. TECHNIQUE: 2D digital imaging was performed. COMPARISON: No exams were available for comparison FINDINGS: 3 views No evidence of fracture nor diastasis of the Lisfranc joint. Metatarsophalangeal joint of the great toe appears unremarkable. No pes planus. Bone density is age-appropriate. No osseous lesions nor e rosions. There is no radiopaque foreign body. There is vascular calcification noted. IMPRESSION: No fracture. DATA REPOSITORY: RADIATION DOSE DELIVERED:
== END 2021-10-04 10:47 | disposition home or self-care (01) ==
PROVIDERS: Emergency Provider Emergency Medicine
DX: M79.671 Pain in right foot (principal); R22.41 Localized swelling, mass and lump, right lower limb; I10 Essential (primary) hypertension; E11.9 Type 2 diabetes mellitus without complications; Z87.891 Personal history of nicotine dependence
CPT/HCPCS: 99283; 73630; 99282

== ENCOUNTER 2021-12-30 14:24 | Emergency (ER) | payer MEDICARE, BC, SELFPAY ==
[2021-12-30] VITALS (19 sets, daily range): BP systolic 121–162; BP diastolic 57–93; PULSE 58–66; RESP 7–23; TEMP 36.2; O2SAT 90–99
--- NOTE | 2021-12-30 14:15 | RT.EKG_ITS ---
APPROVED REPORT Exam: Resting ECG Reason for Exam: Dizziness, visual disturbances,pacemeker hx a-dyana Patient Location: E HR:63 bpm ECG Measurements Heart Rate 63 AXIS WV 232 P [id number] QRSd 99 QRS -85 QT 437 T 62 QTc 446 Conclusion Atrial-paced complexes...other complexes also detected Prolonged WV interval...WV >220, V-rate 50- 90 Inferolateral infarct, old...Q >40mS, inf-lat leads. A-paced. No significant change compared to previous ekg. No STEMI. I have reviewed and interpreted ECG and agree with software generated interpretation.
--- NOTE | 2021-12-30 14:51 | ED.GENADUL_ITS ---
Discharge Plan Disposition Patient Disposition: HOME Condition: Stable Discharge Details Clinical Impression: Changes in vision Primary Care Provider: Unknown,Unknown ED Provider: Светлана Alvarez Home Meds and New Rx's Prescriptions: Continued aspirin [Aspir-81] 81 MG tablet,delayed release (DR/EC) 1 tab PO DAILY ISOSORBIDE MONONITRATE 30 MG TAB.ER.24H 1 tab PO DAILY metformin 500 MG tablet 1,000 mg PO BID Label Comments: changed to glipizide atorvastatin [Lipitor] 20 MG tablet 80 mg PO HS Label Comments: 02/11/16- Takes 40mg qHS. aj clopidogrel [Plavix] 75 mg Tablet 75 mg PO DAILY cholecalciferol (vitamin D3) [Vitamin D3] 50 mcg (2,000 unit) Capsule 50 mcg PO DAILY cyanocobalamin (vitamin B-12) 100 mcg Tablet 100 mcg PO DAILY glipizide 2.5 mg Tablet Extended Release 24 Hr 5 mg PO DAILY losartan 50 mg Tablet 50 mg PO DAILY metoprolol tartrate 25 mg Tablet 25 mg PO BID nitroglycerin 0.4 mg Tablet, Sublingual 0.4 mg sublingual DIRECTED PRN timolol 0.25 % Drops 1 - 2 drp ophthalmic (eye) BID tramadol 50 mg Tablet 50 mg PO BID PRN methocarbamol 500 mg tablet 500 mg PO Q6H PRN (Reason: muscle spasm) Qty: 14 0RF acetaminophen [Tylenol Extra Strength] 500 MG tablet 1,000 mg PO PRN PRN tamsulosin [Flomax] 0.4 MG capsule 0.4 mg PO DAILY Qty: 20 0RF Label Comments: not taking isosorbide mononitrate 30 mg Tablet Extended Release 24 Hr 30 mg PO DAILY Discharge Instructions Additional Instructions: Continue on your prescribed medication [facility] will likely call you in the morning, please call them if you do not hear by 9 Return earlier should you have return of symptoms, or with any new or worsening complaints [address], Discharge Data Discharge Date/Time-TO BE ENTERED AT DEPARTURE: 12/30/21 19:04 Medical Decision Making <Merry Ordonez NP - Last Filed: 12/31/21 15:41> 76-year-old male with a past medical history of atrial fibrillation, type 2 diabetes mellitus, hypertension hyperlipidemia with a pacemaker, CABG with 2 stents placed presents to the ER with a chief complaint of transient unilateral partial vision loss in his left eye and dizziness which occurred today prior to arrival. Patient states that he was on his way to a radiation treatment at the cancer center when while driving he had a partial loss of vision to his left eye. He states that it was very linear demarcated and vertical vision loss he describes as like a sunglasses which lasts approximately 5 seconds and then resolved and when he stood up he was very dizzy. He reports that this morning he just did not feel right. CTA Brain and Neck ordered, Care is to be handed off to oncoming provider Светлана RAMÍREZ pending CTA and disposition. Diff Diagnosis includes but not limited to: Central Retinal vein occlusion, Retinal detachment, Thromoembolisim, CVA LB: Care accepted from Merry Galvan nurse practitioner CTA does not show evidence of acute abnormality per radiology interpretation and my review Diagnostic labs are reassuring Patient is completely asymptomatic and feels at baseline Case discussed with Dr. Gonsales, ophthalmology at [facility] regarding the brief episode of discoloration the patient visualized in his left eye and they think his work-up is reassuring They do recommend he sees ophthalmology tomorrow, he is placed on the follow-up list for [facility] There is no evidence of dissection or obvious occlusion At this time is unclear what the source of patient's symptoms were, however I think TIA, retinal detachment, vitreous hemorrhage are lower in the differential especially without any sort of vision loss associated and only green discoloration in the periphery of his eye He feels comfortable discharge home now that this is unreasonable, he is on appropriate medical management with Plavix, atorvastatin, and actually has pacemaker He will need to follow-up with his primary care physician as well Discharged home in stable condition with stable Medical Records Medical records reviewed: Yes I reviewed the patient's medical records. Lab Data Lab results reviewed: Yes I reviewed the patient's lab results. Labs: Laboratory Tests Range/Units 12/30/21 12/30/21 12/30/21 15:00 15:00 15:00 WBC (4.4-10.8) 10^3/uL 3.91 L RBC (4.36-5.78) 10^6/uL 4.44 Hgb (13.5-17.5) g/dL 13.5 Hct (40.0-50.0) % 39.3 L MCV (80-95) fL 89 MCH (27.0-33.0) pg 30.4 MCHC (32.0-36.0) % 34.4 RDW (11.8-14.1) % 13.0 Plt Count (130-400) 10^3/uL 96 L MPV (8.0-11.0) fL 10.0 Immature Gran % 0.3 Neutrophils % 72.1 Lymphocytes % 11.5 Monocytes % 11.5 Eosinophils % 4.1 Basophils % 0.5 Nucleated RBC % (0.0-0.3) % 0.0 Absolute Neutrophils (1.2-6.7) 10^3/uL 2.82 Absolute Lymphocytes (1.2-3.4) 10^3/uL 0.45 L Absolute Monocytes (0.1-0.8) 10^3/uL 0.45 Absolute Eosinophils (0.0-0.7) 10^3/uL 0.16 Absolute Basophils (0.0-0.2) 10^3/uL 0.02 PT (9.3-11.0) sec 10.8 INR (0.9-1.1) 1.1 APTT (21.0-27.5) sec 24.0 Sodium (136-145) mmol/L 139 Potassium (3.5-5.1) mmol/L 4.3 Chloride (98-107) mmol/L 106 Carbon Dioxide (21.0-32.0) mmol/L 24.7 Anion Gap (3-11) mmol/L 8.3 BUN (7-18) mg/dL 22 H Creatinine (0.70-1.30) mg/dL 1.3 Est GFR (CKD-EPI 2020) (mL/min/1.73m2) 56.93 Glucose (74-106) mg/dL 296 H Calcium (8.5-10.1) mg/dL 8.7 Magnesium (1.8-2.4) mg/dL 1.8 Total Bilirubin (0.2-1.0) mg/dL 1.3 H AST (15-37) U/L 19 ALT (16-63) U/L 24 Alkaline Phosphatase (46-116) U/L 154 H Troponin I (<or=60) ng/L < 50 Total Protein (6.4-8.2) g/dL 6.3 L Albumin (3.4-5.0) g/dL 3.7 Urine Color (Yellow) Urine Clarity (Clear) Urine pH (5-8) Ur Specific [place] (1.005-1.025) Urine Protein (Negative) mg/dL Urine Ketones (Negative) mg/dL Urine Blood (Negative) Urine Nitrite (Negative) Urine Bilirubin (Negative) Urine Urobilinogen (Up TO 0.2) EU/dL Ur Leukocyte Esterase (Negative) Urine RBC (0-2) HPF Urine WBC (0-5) HPF Ur Epithelial Cells (Negative) HPF Urine Crystals (Negative) HPF Urine Bacteria (Negative) HPF Urine Casts (Negative) LPF Urine Mucus (Negative) Ur Culture Indicated? Urine Glucose (Negative) mg/dL Range/Units 12/30/21 12/30/21 15:22 17:33 WBC (4.4-10.8) 10^3/uL RBC (4.36-5.78) 10^6/uL Hgb (13.5-17.5) g/dL Hct (40.0-50.0) % MCV (80-95) fL MCH (27.0-33.0) pg MCHC (32.0-36.0) % RDW (11.8-14.1) % Plt Count (130-400) 10^3/uL MPV (8.0-11.0) fL Immature Gran % Neutrophils % Lymphocytes % Monocytes % Eosinophils % Basophils % Nucleated RBC % (0.0-0.3) % Absolute Neutrophils (1.2-6.7) 10^3/uL Absolute Lymphocytes (1.2-3.4) 10^3/uL Absolute Monocytes (0.1-0.8) 10^3/uL Absolute Eosinophils (0.0-0.7) 10^3/uL Absolute Basophils (0.0-0.2) 10^3/uL PT (9.3-11.0) sec INR (0.9-1.1) APTT (21.0-27.5) sec Sodium (136-145) mmol/L Potassium (3.5-5.1) mmol/L Chloride (98-107) mmol/L Carbon Dioxide (21.0-32.0) mmol/L Anion Gap (3-11) mmol/L BUN (7-18) mg/dL Creatinine (0.70-1.30) mg/dL Est GFR (CKD-EPI 2020) (mL/min/1.73m2) Glucose (74-106) mg/dL Calcium (8.5-10.1) mg/dL Magnesium (1.8-2.4) mg/dL Total Bilirubin (0.2-1.0) mg/dL AST (15-37) U/L ALT (16-63) U/L Alkaline Phosphatase (46-116) U/L Troponin I (<or=60) ng/L Cancelled Total Protein (6.4-8.2) g/dL Albumin (3.4-5.0) g/dL Urine Color (Yellow) Yellow Urine Clarity (Clear) Clear Urine pH (5-8) 6.0 Ur Specific [place] (1.005-1.025) >= 1.030 H Urine Protein (Negative) mg/dL Trace H Urine Ketones (Negative) mg/dL Negative Urine Blood (Negative) Negative Urine Nitrite (Negative) Negative Urine Bilirubin (Negative) Negative Urine Urobilinogen (Up TO 0.2) EU/dL 4.0 H Ur Leukocyte Esterase (Negative) Negative Urine RBC (0-2) HPF Negative Urine WBC (0-5) HPF Negative Ur Epithelial Cells (Negative) HPF Rare Urine Crystals (Negative) HPF Negative Urine Bacteria (Negative) HPF Negative Urine Casts (Negative) LPF 0-2 Hyaline Urine Mucus (Negative) Negative Ur Culture Indicated? No Urine Glucose (Negative) mg/dL 500 H <DESIREE Spence - Last Filed: 12/30/21 22:32> LB: Care accepted from Merry Galvan nurse practitioner CTA does not show evidence of acute abnormality per radiology interpretation and my review Diagnostic labs are reassuring Patient is completely asymptomatic and feels at baseline Case discussed with Dr. Gonsales, ophthalmology at [facility] regarding the brief episode of discoloration the patient visualized in his left eye and they think his work-up is reassuring They do recommend he sees ophthalmology tomorrow, he is placed on the follow-up list for [facility] There is no evidence of dissection or obvious occlusion At this time is unclear what the source of patient's symptoms were, however I think TIA, retinal detachment, vitreous hemorrhage are lower in the differential especially without any sort of vision loss associated and only green discoloration in the periphery of his eye He feels comfortable discharge home now that this is unreasonable, he is on appropriate medical management with Plavix, atorvastatin, and actually has pacemaker He will need to follow-up with his primary care physician as well Discharged home in stable condition with stable HPI <Merry Ordonez NP - Last Filed: 12/31/21 15:41> General Mode of arrival: ambulatory . Date/Time Provider Initiated Documentation: 12/30/21 14:25 . Limitations to Documentation: no limitations . Information obtained by: patient, RN notes reviewed and old records reviewed . HPI Narrative: 76-year-old male with a past medical history of atrial fibrillation, type 2 diabetes mellitus, hypertension hyperlipidemia with a pacemaker, CABG with 2 stents placed presents to the ER with a chief complaint of transient unilateral partial vision loss in his left eye and dizziness which occurred today prior to arrival. Patient states that he was on his way to a radiation treatment at the cancer center when while driving he had a partial loss of vision to his left eye. He states that it was very linear demarcated and vertical vision loss he describes as like a sunglasses which lasts approximately 5 seconds and then resolved and when he stood up he was very dizzy. He reports that this morning he just did not feel right. He did go ahead with his radiation treatment and was referred here by the cancer center for further evaluation. Upon arrival his symptoms have resolved he reports being at his baseline he denies any visual disturbances. He reports that he is always dizzy at baseline. Denies any chest pain shortness of breath nausea vomiting diarrhea or any other associated symptoms or concern. Related Data Home Medications Medication Instructions Recorded Confirmed Isosorbide Mononitrate 1 tab PO DAILY 09/20/12 05/27/21 aspirin 81 mg tablet,delayed 1 tab PO DAILY 09/20/12 10/04/21 release (Aspir-) atorvastatin 20 mg tablet (Lipitor) 80 mg PO HS 12/26/15 05/27/21 metformin 500 mg tablet 1,000 mg PO BID 07/05/16 01/15/18 acetaminophen 500 mg tablet 1,000 mg PO PRN PRN 09/17/16 05/27/21 (Tylenol Extra Strength) tamsulosin 0.4 mg capsule (Flomax) 0.4 mg PO DAILY ##20 09/18/16 10/04/21 clopidogrel 75 mg tablet (Plavix) 75 mg PO DAILY 01/15/18 10/04/21 cholecalciferol (vitamin D3) 50 50 mcg PO DAILY 05/27/21 10/04/21 mcg (2,000 unit) capsule (Vitamin D3) cyanocobalamin (vitamin B-12) 100 100 mcg PO DAILY 05/27/21 10/04/21 mcg tablet glipizide 2.5 mg tablet, extended 5 mg PO DAILY 05/27/21 05/27/21 release 24 hr losartan 50 mg tablet 50 mg PO DAILY 05/27/21 10/04/21 methocarbamol 500 mg tablet 500 mg PO Q6H PRN muscle spasm #14 05/27/21 tabs metoprolol tartrate 25 mg tablet 25 mg PO BID 05/27/21 10/04/21 nitroglycerin 0.4 mg sublingual 0.4 mg sublingual DIRECTED PRN 05/27/21 10/04/21 tablet timolol 0.25 % eye drops 1 - 2 drp ophthalmic (eye) BID 05/27/21 10/04/21 tramadol 50 mg tablet 50 mg PO BID PRN 05/27/21 05/27/21 isosorbide mononitrate 30 mg 30 mg PO DAILY 10/04/21 10/04/21 tablet,extended release 24 hr Previous Rx's Medication Instructions Recorded tamsulosin 0.4 mg capsule (Flomax) 0.4 mg PO DAILY ##20 09/18/16 methocarbamol 500 mg tablet 500 mg PO Q6H PRN muscle spasm #14 05/27/21 tabs Allergies Allergy/AdvReac Type Severity Reaction Status Date / Time No Known Allergies Allergy Unverified 10/04/21 09:36 General Stated Complaint: Dizzy/Sync TIFFANIE: 2 Review of Systems <Merry Ordonez NP - Last Filed: 12/31/21 15:41> All systems reviewed & are unremarkable except as noted in HPI and below Constitutional Constitutional: Denies headache(s) Eyes Eyes: Reports loss of vision (Resolved) ENT Ears, Nose, Mouth, and Throat: Denies headache(s) Cardiovascular Cardiovascular: Denies chest pain and Denies dyspnea Respiratory Respiratory: Denies dyspnea Neurologic Neurologic: Denies headache(s) and Reports loss of vision (Resolved) PFSH <Merry Ordonez NP - Last Filed: 12/31/21 15:41> All Active Problems (Updated 12/30/21 @ 18:53 by DESIREE Spence) Changes in vision (Acute) Medical History (Updated 12/30/21 @ 18:53 by DESIREE Spence) Atrial fibrillation DM w/o complication type II, uncontrolled HTN (hypertension) Hx of hyperlipidemia Pacemaker Surgical History (Updated 05/27/21 @ 16:41 by Haylie Cardozo DO) History of knee surgery Family History Mother Diabetes Heart disease Father Heart disease Social History Smoking/Tobacco Use Status: Former Tobacco Use Quit Date: 02/20/73 Smoking risk assessment performed?: Yes Alcohol Intake: current Alcohol Intake frequency: holidays/special occasions only Drug use: Never Substance use type: does not use Do you feel safe at home: Yes Do you feel safe in your relationship?: Yes Exam <Merry Ordonez NP - Last Filed: 12/31/21 15:41> Const General: cooperative, comfortable, well developed and well groomed Nutritional Appearance: average body habitus and well nourished Orientation: alert, awake and oriented x3 HENMT Head: normal to inspection General nose exam: external nose normal Face and sinus: normal facial exam Eyes General: appearance normal, both eyes and all related structures Visual Leos: normal visual leos by confrontation Alignment and Position: alignment normal Periorbital: periorbital findings normal Eyelids: eyelids normal Conjunctivae: conjunctivae normal Pupils: PERRL and normal by confrontation EOM: EOM intact bilaterally Direct ophthalmoscopy: normal light reflex Chest Chest: pacemaker Resp Effort & Inspection: normal respiratory effort Cardio Rate: regular rate Heart Sounds: S1 normal and S2 normal Neuro General: patient alert, patient awake, patient oriented x3, moves all extremities and no focal motor deficits Cranial Nerves: PERRL, EOM intact bilaterally, no nystagmus, facial strength normal, tongue midline, gag reflex normal, able to rotate head bilaterally and able to elevate shoulders bilaterally Cognition: normal cognition Speech: speech normal Gait: normal gait Motor: no pronator drift Course <Merry Ordonez NP - Last Filed: 12/31/21 15:41> Vital Signs Vital signs: Vital Signs Temperature 36.2 C L 12/30/21 14:26 Pulse 65 12/30/21 14:26 Respiratory Rate 20 12/30/21 14:26 Blood Pressure 162/75 H 12/30/21 14:26 Pulse Oximetry 98 12/30/21 14:26 Temperature 36.2 C L 12/30/21 14:26 Temperature Source Temporal Artery Scan 12/30/21 14:26 Pulse 65 12/30/21 14:26 Respiratory Rate 20 12/30/21 14:26 Blood Pressure 162/75 H 12/30/21 14:26 Blood Pressure Position Sitting 12/30/21 14:26 Pulse Oximetry 98 12/30/21 14:26 Oxygen Delivery Method Room Air 12/30/21 14:26 Oxygen Flow Rate 0 12/30/21 14:26 Pain Level 0 12/30/21 14:26 Sign Out <Merry Ordonez NP - Last Filed: 12/31/21 15:41> Sign Out Data: Sign Out Comment: 76-year-old male presents with transient unilateral visual disturbance and dizziness. He completed his radiation treatment for prostate cancer and presented to the ER for further eval. His symptoms have since resolved. He denies any headache chest pain shortness of breath no nausea vomiting diarrhea. History of A. fib, pacemaker, CABG and 2 stents placed, Last updated by Merry Ordonez NP at 12/30/21 15:39
[2021-12-30 15:10] LABS: Abs Immature Grans 0.01 10^3/uL (0.0-0.06); Absolute Basophil Count 0.02 10^3/uL (0.0-0.2); Absolute Eosinophil Count 0.16 10^3/uL (0.0-0.7); Absolute Lymphocyte Count 0.45 10^3/uL (1.2-3.4); Absolute Monocyte Count 0.45 10^3/uL (0.1-0.8); Absolute Neutrophil Count 2.82 10^3/uL (1.2-6.7); Basophils % 0.5; Eosinophils % 4.1; HCT 39.3 % (40.0-50.0); HGB 13.5 g/dL (13.5-17.5); Immature Grans % 0.3; Lymphocytes % 11.5; MCH 30.4 pg (27.0-33.0); MCHC 34.4 % (32.0-36.0); MCV 89 fL (80-95); Monocytes % 11.5; Neutrophils % 72.1; RBC 4.44 10^6/uL (4.36-5.78); WBC 3.91 10^3/uL (4.4-10.8)
[2021-12-30 15:20] LABS: Platelet Count 96 10^3/uL (130-400)
[2021-12-30 15:24] LABS: INR 1.1 (0.9-1.1); Prothrombin Time 10.8 sec (9.3-11.0)
[2021-12-30 15:29] LABS: ALT 24 U/L (16-63); AST 19 U/L (15-37); Albumin 3.7 g/dL (3.4-5.0); Alkaline Phosphatase 154 U/L (46-116); Anion Gap 8.3 mmol/L (3-11); BUN 22 mg/dL (7-18); Bilirubin, Total 1.3 mg/dL (0.2-1.0); CO2 24.7 mmol/L (21.0-32.0); CREATININE 1.3 mg/dL (0.70-1.30); Calcium 8.7 mg/dL (8.5-10.1); Chloride 106 mmol/L (98-107); Estimated GFR 56.93 (mL/min/1.73m2); Glucose 296 mg/dL (74-106); Magnesium 1.8 mg/dL (1.8-2.4); Potassium 4.3 mmol/L (3.5-5.1); Sodium 139 mmol/L (136-145); Total Protein 6.3 g/dL (6.4-8.2); Troponin I < 50 ng/L (<or=60)
[2021-12-30 15:34] LABS: Bilirubin Negative (Negative); Blood Negative (Negative); Clarity Clear (Clear); Glucose 500 mg/dL (Negative); Ketones Negative (Negative); Leukocyte Esterase Negative (Negative); Nitrite Negative (Negative); Specific Gravity >= 1.030 (1.005-1.025)
[2021-12-30 15:45] LABS: Bacteria Negative HPF (Negative); C & S Indicated? No; Casts 0-2 Hyaline LPF (Negative); Crystals Negative HPF (Negative); Epithelial Cells Rare HPF (Negative); Mucus Negative (Negative); RBC Negative HPF (0-2); WBC Negative HPF (0-5)
--- NOTE | 2021-12-30 15:45 | DI.CT_ITS ---
Exam(s) CT BRAIN NECK CTA EXAM: CT BRAIN NECK CTA CLINICAL HISTORY: Transient unilateral vision loss on R, Dizziness. TECHNIQUE: Imaging Protocol: Axial CT angiography was performed with multi-slice acquisition and mu lti-planar and/or 3D reconstructions. CONTRAST MATERIAL: Intravenous: Omnipaque 350 Contrast volume:structured data in ml COMPARISON: CT RENAL COLIC WO CONTRAST from 09/17/2016 FINDINGS: CTA Neck W: Aortic arch anatomy: The aortic arch anatomy is conventional and there is no significant stenosis at the origin of the great vessels off of the aortic arch. No intimal flap evident. Anterior circulation: Both common carotid arteries ascend with normal luminal diameters. At the level the right carotid bulb there is some plaque on the medial wall but no significant stenos is. The right ICA is patent in the upper neck. At the left carotid bifurcation no significant plaqu e but there is calcified plaque on the lateral wall of the proximal left internal carotid artery with approximately 30 percent stenosis at this level. Above this level the left ICA is nicely patent in the upper neck and skull base-carotid canal. Posterior circulation: Vertebral reaches originate off of the subclavian arteries. The left vertebral artery is occluded pr oximally and is reconstituted and mid level foramen transverse area. At the skull base is calcified in similar fashion to the opposite-right vertebral artery. Mild stenosis at this level. Left verteb ral artery contribute to the formation of the basilar artery. The right vertebral artery exhibits an element of stenosis at its origin. In the foramen transverse area it is sends with a luminal diameter of 3.8 millimeters and no evidence of dissection. At the sk ull base it is also significantly calcified but also contributes to the formation of the basilar hitesh ry at the skull base. CTA Brain W: Anterior circulation: Both internal carotid arteries are calcified at the skull base as well as within the cavernous sinuse s but are patent. The supraclinoid aspects of the ICAs are patent. Both A1 segments are patent as are the anterior cer ebral arteries and there is no evidence of aneurysm at the level of the anterior communicating artery . Both middle cerebral arteries are patent with no evidence of significant stenosis nor intraluminal th rombus. There also no aneurysms of these vessels. Posterior circulation: The basilar artery ascends in the midline. Distally it gives off patent bilateral superior cerebella r arteries. Above this level the basilar artery terminates as patent bilateral posterior cerebral arteries. There is no evidence of aneurysm at the tip of the basilar artery nor elsewhere in the [id number] is. CT BRAIN: There is no evidence of intracranial hemorrhage, mass effect, or shift of midline structures. There are no extra-axial fluid collections. Ventricles are not enlarged or shifted. There is evidence of nonacute left occipital lobe infarct. No other areas of infarct in the posterior circulation includi ng the cerebellar hemispheres. There are no ring enhancing lesions in the brain and no abnormal meningeal enhancement. IMPRESSION: 1. Mild stenosis at the level the proximal left internal carotid artery in the neck. No significant stenosis on the opposite-right side at right carotid bulb and proximal ICA. 2. 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 There is stenosis at the origin of the right vertebral artery. Both vertebral arteries a re heavily calcified at the skull base but both contribute to the formation of the basilar artery. 3. Patent intracranial arteries. 4. Evidence of left occipital lobe infarct which is not acute appearing First read by [facility]. RADIATION DOSE DELIVERED: 1,984.4mGy.cm Total DLP DATA REPOSITORY: All CT scans at this facility are submitted to the National Radiology Data Registry (NRDR) Dose Index Registry (DIR) with the [employer] ([employer]). RADIATION OPTIMIZATION: All CT scans at this facility use at least one of these dose optimization te chniques: automated exposure control; mA and/or kV adjustment per patient size (includes targeted exa ms where dose is matched to clinical indication); or iterative reconstruction.
[2021-12-30] MEDS: Normal Saline - Diluent 50 ML VIAL IV (16:30)
[2021-12-30] MEDS: Normal Saline Flush 10 ML SYR IVP (16:31)
[2021-12-30] MEDS: Omnipaque 350 MG/ML 100 ML BTL IJ (16:31)
--- NOTE | 2021-12-30 18:03 | DI.VRAD_ITS ---
PROCEDURE INFORMATION: Exam: CT Head Without Contrast Exam date and time: 12/30/2021 4:20 PM Age: 76 years old Clinical indication: Transient unilateral vision loss on R, dizziness TECHNIQUE: Imaging protocol: Computed tomography of the head without contrast. COMPARISON: CT HEAD WO 01/15/2018 5:32 PM FINDINGS: Brain: There is no acute intracranial hemorrhage, mass effect or midline shift. There is no large acute territorial cerebral infarct. There is a region of encephalomalacia in the left occipital and left temporal lobes, likely from remote infarct. There are small hypodensities in the left internal capsule and left thalamus, suggestive of remote lacunar infarcts. Cerebral ventricles: No ventriculomegaly. Paranasal sinuses: Visualized sinuses are unremarkable. No fluid levels. Mastoid air cells: Visualized mastoid air cells are well aerated. Bones/joints: No acute fracture. Soft tissues: Unremarkable. IMPRESSION: 1. No acute intracranial hemorrhage, mass effect or midline shift. 2. 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 PROCEDURE INFORMATION: Exam: CTA Head With Contrast, Arteriography Exam date and time: 12/30/2021 4:20 PM Age: 76 years old Clinical indication: Transient unilateral vision loss on R, dizziness TECHNIQUE: Imaging protocol: Computed tomographic angiography of the head with contrast. Exam focused on the arteries. 3D rendering (Not supervised by radiologist): MIP and/or 3D reconstructed images were created by the technologist. Contrast material: OMNIPAQUE 350; Contrast volume: 80 ml; Contrast route: INTRAVENOUS (IV); COMPARISON: CTA BRAIN AND NECK 12/27/2015 2:03 AM FINDINGS: ANTERIOR CIRCULATION: Right internal carotid artery: The right internal carotid artery shows no evidence of occlusion or significant stenosis. No aneurysm. Right middle cerebral artery: No occlusion or significant stenosis in the right MCA. No aneurysm. Right anterior cerebral artery: No occlusion or significant stenosis in the right ABHISHEK. No aneurysm. Left internal carotid artery: The left internal carotid artery shows no evidence of occlusion or significant stenosis. No aneurysm. Left middle cerebral artery: No occlusion or significant stenosis in the left MCA. No aneurysm. Left anterior cerebral artery: No occlusion or significant stenosis in the left ABHISHEK. No aneurysm. POSTERIOR CIRCULATION: Right vertebral artery: Significant atherosclerotic calcification seen in the right vertebral artery with mild narrowing. Left vertebral artery: Significant atherosclerotic calcification seen in the left vertebral artery with mild narrowing. Basilar artery: The basilar artery shows no evidence of occlusion or significant stenosis. No aneurysm. Right posterior cerebral artery: No occlusion or significant stenosis in the right PHARMACY TECHNICIAN. No aneurysm. Left posterior cerebral artery: No occlusion or significant stenosis in the left PHARMACY TECHNICIAN. No aneurysm. Brain: No definite mass, mass effect, or midline shift. Cerebral ventricles: No ventriculomegaly. Bones/joints: No acute fracture. Soft tissues: Unremarkable. IMPRESSION: No large vessel occlusion or significant stenosis. PROCEDURE INFORMATION: Exam: CTA Neck With Contrast Exam date and time: 12/30/2021 4:20 PM Age: 76 years old Clinical indication: Transient unilateral vision loss on R, dizziness TECHNIQUE: Imaging protocol: Computed tomographic angiography of the neck with contrast. 3D rendering (Not supervised by radiologist): MIP and/or 3D reconstructed images were created by the technologist. Contrast material: OMNIPAQUE 350; Contrast volume: 80 ml; Contrast route: INTRAVENOUS (IV); COMPARISON: CTA BRAIN AND NECK 12/27/2015 2:03 AM FINDINGS: Right common carotid artery: No significant stenosis in the right CCA. No dissection or occlusion. Right internal carotid artery: No significant stenosis of the right ICA extracranial segment. No dissection or occlusion. Right external carotid artery: No occlusion or stenosis of the origin in the right ECA. Left common carotid artery: No significant stenosis in the left CCA. No dissection or occlusion. Left internal carotid artery: No significant stenosis of the left ICA extracranial segment. No dissection or occlusion. Left external carotid artery: No occlusion or stenosis of the origin in the left ECA. Right vertebral artery: There is significant stenosis of the proximal right vertebral artery, demonstrating slightly more flow than seen on the prior examination. 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 Soft tissues: Normal. No significant soft tissue swelling. Bones/joints: No acute fracture. Multilevel degenerative disc disease and bilateral facet arthropathy noted in the cervical spine with right greater than left neural foraminal narrowing. Lungs: Linear scar tissue again noted in the right lung apex, similar to prior examination. IMPRESSION: 1. 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 2. Significant stenosis in the proximal right vertebral artery, however appears improved since the prior scan. REFERENCES: NASCET CRITERIA. The degree of stenosis in the cervical segment of the internal carotid artery is based on NASCET criteria. Normal is no stenosis. Mild is less than 50% stenosis. Moderate is 50-69% stenosis. Severe is 70% to 99% stenosis. Total occlusion is no detectable patent lumen. Dictated and Authenticated by: Katja Singh MD. Ordering:RUTH Sousa MD
--- NOTE | 2021-12-30 20:06 | NUR.NOTE ---
Referral faxed to [facility] to f/u 12/31/21 for vision abnormality.Nursing Note:
== END 2021-12-30 19:04 | disposition home or self-care (01) ==
PROVIDERS: Registered Nurse Emergency; Emergency Provider Physician Assistant
DX: H53.8 Other visual disturbances (principal); R42 Dizziness and giddiness; I48.91 Unspecified atrial fibrillation; E11.9 Type 2 diabetes mellitus without complications; I10 Essential (primary) hypertension; Z95.0 Presence of cardiac pacemaker
CPT/HCPCS: 70496; 70498; 80053; 93005; 96360; 96361; 99285; 81003; 81015; 83735; 84484; 85025; 85610; 85730; 93010; J3490

== ENCOUNTER 2022-03-14 16:07 | Outpatient (CLI) | payer MEDICARE, BC, SELFPAY | END 2022-03-14 16:08 | disposition home or self-care (01) | LOC: LBO 16:16 | PROVIDERS: Visit Provider Radiology Radiation Oncology | DX: C61 Malignant neoplasm of prostate (principal) | CPT/HCPCS: 36415; 84153 ==

== ENCOUNTER 2022-05-09 12:30 | Outpatient (CLI) | payer MEDICARE, BC, SELFPAY ==
[2022-05-12 19:06] LABS: PSA, Ultrasensitive 2.1 ng/mL (<= 6.5)
== END 2022-05-09 12:31 | disposition home or self-care (01) ==
LOC: LBO 12:31
PROVIDERS: Visit Provider Radiology Radiation Oncology
DX: C61 Malignant neoplasm of prostate (principal)
CPT/HCPCS: 36415; 84153

== ENCOUNTER 2022-11-16 03:14 | Outpatient (CLI) | payer MEDICARE, BC, SELFPAY ==
[2022-11-21 14:26] LABS: Testosterone, Total 638 ng/dL (240-950)
== END 2022-11-16 03:15 | disposition home or self-care (01) ==
LOC: LBO 03:16
PROVIDERS: Visit Provider Student in an Organized Health Care Education/Training Program
DX: C61 Malignant neoplasm of prostate (principal)
CPT/HCPCS: 84153; 84403

== ENCOUNTER 2023-02-01 14:33 | Emergency (ER) | payer OTHER, SELFPAY ==
[2023-02-01 14:41] VITALS: BP 138/77; PULSE 64; RESP 16; TEMP 36.4
[2023-02-01 14:56] VITALS: BP 138/77; PULSE 64; RESP 16; TEMP 36.4
--- NOTE | 2023-02-01 15:43 | W.ED.GENAD ---
Discharge Plan Disposition Patient Disposition: Home Condition: Improving Discharge Details Clinical Impression: Sensation of foreign body in left eye Primary Care Provider: Unknown,Unknown ED Provider: Merry Ordonez Home Meds and New Rx's Prescriptions: Continued aspirin [Aspir-81] 81 MG tablet,delayed release (DR/EC) 1 tab PO DAILY ISOSORBIDE MONONITRATE 30 MG TAB.ER.24H 1 tab PO DAILY metformin 500 MG tablet 1,000 mg PO BID Patient Comments: changed to glipizide atorvastatin [Lipitor] 20 MG tablet 80 mg PO HS Patient Comments: 02/11/16- Takes 40mg qHS. aj clopidogrel [Plavix] 75 mg Tablet 75 mg PO DAILY cholecalciferol (vitamin D3) [Vitamin D3] 50 mcg (2,000 unit) Capsule 50 mcg PO DAILY cyanocobalamin (vitamin B-12) 100 mcg Tablet 100 mcg PO DAILY glipizide 2.5 mg Tablet Extended Release 24 Hr 5 mg PO DAILY losartan 50 mg Tablet 50 mg PO DAILY metoprolol tartrate 25 mg Tablet 25 mg PO BID nitroglycerin 0.4 mg Tablet, Sublingual 0.4 mg sublingual DIRECTED PRN timolol 0.25 % Drops 1 - 2 drp ophthalmic (eye) BID tramadol 50 mg Tablet 50 mg PO BID PRN methocarbamol 500 mg tablet 500 mg PO Q6H PRN (Reason: muscle spasm) Qty: 14 0RF acetaminophen [Tylenol Extra Strength] 500 MG tablet 1,000 mg PO PRN PRN tamsulosin [Flomax] 0.4 MG capsule 0.4 mg PO DAILY Qty: 20 0RF Patient Comments: not taking isosorbide mononitrate 30 mg Tablet Extended Release 24 Hr 30 mg PO DAILY Discharge Instructions Instructions: Eye Foreign Body (ED) Additional Instructions: At this time we have flushed your eye which has improved your symptoms. No evidence of corneal abrasion on exam. Thank you for allowing us to care for you today. Follow up with primary care provider if needed. Return to ED sooner if any worsening or concerns. Increase oral fluids. Referrals: [facility] [Outside] - Return if symptoms worsen Discharge Data Discharge Date/Time-TO BE ENTERED AT DEPARTURE: 02/01/23 15:54 Medical Decision Making 77-year-old male presents to the ER companied by his with a chief complaint of left eye foreign body sensation. Patient reports that he woke up this morning something in his eye. ER staff placed a Anthony lens prior to my evaluation and flushed out which improved his symptoms. Fluorescein and Quezada lamp and tetracaine exam performed by myself which shows no uptake and dye no corneal abrasion. EOMs are intact. Pupils are PERRLA. Patient has no more complaints were no associated complaints. He does have a past medical history of high cholesterol, hypertension, diabetes type 2, does have a pacemaker and atrial fibrillation. Will plan to discharge patient home. This text was generated using Quaamation system, please disregard any oddities of phrase or misspellings. HPI General Mode of arrival: ambulatory. Date/Time Provider Initiated Documentation: 02/01/23 15:00. Limitations to Documentation: no limitations. Information obtained by: patient, RN notes reviewed and old records reviewed. HPI Narrative: 77-year-old male with foreign body sensation to his left eye upon awakening. Patient was irrigated upon arrival which decreased sensation. No other associated symptoms or complaints. See MDM. No corneal abrasion noted on exam. No headache no visual disturbances no concerns for glaucoma. Related Data Home Medications Medication Instructions Recorded Confirmed Isosorbide Mononitrate 1 tab PO DAILY 09/20/12 05/27/21 aspirin 81 mg tablet,delayed 1 tab PO DAILY 09/20/12 10/04/21 release (Aspir-) atorvastatin 20 mg tablet (Lipitor) 80 mg PO HS 12/26/15 05/27/21 metformin 500 mg tablet 1,000 mg PO BID 07/05/16 01/15/18 acetaminophen 500 mg tablet 1,000 mg PO PRN PRN 09/17/16 05/27/21 (Tylenol Extra Strength) tamsulosin 0.4 mg capsule (Flomax) 0.4 mg PO DAILY ##20 09/18/16 10/04/21 clopidogrel 75 mg tablet (Plavix) 75 mg PO DAILY 01/15/18 10/04/21 cholecalciferol (vitamin D3) 50 50 mcg PO DAILY 05/27/21 10/04/21 mcg (2,000 unit) capsule (Vitamin D3) cyanocobalamin (vitamin B-12) 100 100 mcg PO DAILY 05/27/21 10/04/21 mcg tablet glipizide 2.5 mg tablet, extended 5 mg PO DAILY 05/27/21 05/27/21 release 24 hr losartan 50 mg tablet 50 mg PO DAILY 05/27/21 10/04/21 methocarbamol 500 mg tablet 500 mg PO Q6H PRN muscle spasm #14 05/27/21 tabs metoprolol tartrate 25 mg tablet 25 mg PO BID 05/27/21 10/04/21 nitroglycerin 0.4 mg sublingual 0.4 mg sublingual DIRECTED PRN 05/27/21 10/04/21 tablet timolol 0.25 % eye drops 1 - 2 drp ophthalmic (eye) BID 05/27/21 10/04/21 tramadol 50 mg tablet 50 mg PO BID PRN 05/27/21 05/27/21 isosorbide mononitrate 30 mg 30 mg PO DAILY 10/04/21 10/04/21 tablet,extended release 24 hr Previous Rx's Medication Instructions Recorded tamsulosin 0.4 mg capsule (Flomax) 0.4 mg PO DAILY ##20 09/18/16 methocarbamol 500 mg tablet 500 mg PO Q6H PRN muscle spasm #14 05/27/21 tabs Allergies Allergy/AdvReac Type Severity Reaction Status Date / Time No Known Allergies Allergy Unverified 10/04/21 09:36 General Stated Complaint: EyeProblem TIFFANIE: 4 PFSH All Active Problems (Updated 02/01/23 @ 15:47 by Merry Ordonez NP) Sensation of foreign body in left eye (Acute) Medical History (Updated 02/01/23 @ 15:47 by Merry Ordonez NP) Pacemaker HTN (hypertension) Hx of hyperlipidemia Atrial fibrillation DM w/o complication type II, uncontrolled Surgical History (Updated 05/27/21 @ 16:41 by Haylie Cardozo DO) History of knee surgery Family History Mother Diabetes Heart disease Father Heart disease Social History Smoking/Tobacco Use Status: Former Tobacco Use Quit Date: 02/20/73 Smoking risk assessment performed?: Yes Alcohol Intake: current Alcohol Intake frequency: holidays/special occasions only Drug use: Never Substance use type: does not use Do you feel safe at home: Yes Do you feel safe in your relationship?: Yes Exam Eyes General: appearance normal, both eyes and all related structures Alignment and Position: alignment normal Periorbital: periorbital findings normal Eyelids: eyelids normal Conjunctivae: conjunctivae normal Sclera: sclerae normal Cornea: corneas normal and fluorescein used (Quezada lamp performed no uptake in dye no corneal abrasion noted no FB seen) Pupils: PERRL EOM: EOM intact bilaterally Direct ophthalmoscopy: normal light reflex Course Vital Signs Vital signs: Vital Signs Temperature 36.4 C 02/01/23 14:41 Pulse 64 02/01/23 14:41 Respiratory Rate 16 02/01/23 14:41 Blood Pressure 138/77 02/01/23 14:41 Temperature 36.4 C 02/01/23 14:56 Temperature Source Tympanic 02/01/23 14:41 Pulse 64 02/01/23 14:56 Respiratory Rate 16 02/01/23 14:56 Respiratory Effort Normal 02/01/23 14:56 Blood Pressure 138/77 02/01/23 14:56 Pain Level 5 02/01/23 14:56
== END 2023-02-01 15:54 | disposition home or self-care (01) ==
PROVIDERS: Emergency Provider Registered Nurse Emergency
DX: H57.10 Ocular pain, unspecified eye (principal); I10 Essential (primary) hypertension; I48.91 Unspecified atrial fibrillation; E11.9 Type 2 diabetes mellitus without complications; Z79.82 Long term (current) use of aspirin; Z79.84 Long term (current) use of oral hypoglycemic drugs; Z79.899 Other long term (current) drug therapy
CPT/HCPCS: 99283

== ENCOUNTER 2023-05-22 16:47 | Outpatient (CLI) | payer OTHER, SELFPAY ==
[2023-05-24 21:53] LABS: PSA, Ultrasensitive 0.97 ng/mL (<= 6.5)
== END 2023-05-22 16:48 | disposition home or self-care (01) ==
LOC: LBO 16:47
PROVIDERS: Visit Provider Colon & Rectal Surgery
DX: C61 Malignant neoplasm of prostate (principal)
CPT/HCPCS: 36415; 84153

== ENCOUNTER 2023-11-11 16:46 | Emergency (ER) | payer OTHER, SELFPAY ==
[2023-11-11] VITALS (32 sets, daily range): BP systolic 157–178; BP diastolic 62–88; PULSE 60–79; RESP 6–27; TEMP 36.6; O2SAT 92–99
--- NOTE | 2023-11-11 17:18 | ED.GENADUL_ITS ---
Discharge Plan Disposition Patient Disposition: Home Condition: Stable Discharge Details Clinical Impression: Dizziness, Lung nodule, Otalgia Primary Care Provider: Unknown,Unknown ED Provider: Jaycee Johnson Home Meds and New Rx's Prescriptions: Continued aspirin [Aspir-81] 81 MG tablet,delayed release (DR/EC) 1 tab PO DAILY metformin 500 MG tablet 1,000 mg PO BID Patient Comments: changed to glipizide clopidogrel [Plavix] 75 mg Tablet 75 mg PO DAILY cholecalciferol (vitamin D3) [Vitamin D3] 50 mcg (2,000 unit) Capsule 50 mcg PO DAILY cyanocobalamin (vitamin B-12) 100 mcg Tablet 100 mcg PO DAILY metoprolol tartrate 25 mg Tablet 25 mg PO BID nitroglycerin 0.4 mg Tablet, Sublingual 0.4 mg sublingual DIRECTED PRN timolol 0.25 % Drops 1 - 2 drp ophthalmic (eye) BID tramadol 50 mg Tablet 50 mg PO BID PRN methocarbamol 500 mg tablet 500 mg PO Q6H PRN (Reason: muscle spasm) Qty: 14 0RF alirocumab 75 mg/mL pen injector 75 mg subcut Q2W Eliquis 5 mg tablet 5 mg PO BID empagliflozin 25 mg tablet 12.5 mg PO DAILY mirabegron 25 mg tablet extended release 24 hr 25 mg PO DAILY acetaminophen [Tylenol Extra Strength] 500 MG tablet 1,000 mg PO PRN PRN tamsulosin [Flomax] 0.4 MG capsule 0.4 mg PO DAILY Qty: 20 0RF Patient Comments: not taking isosorbide mononitrate 30 mg Tablet Extended Release 24 Hr 30 mg PO DAILY Discharge Instructions Additional Instructions: Please call your primary care provider first thing Monday morning to schedule a follow-up appointment. It is recommended that you have an outpatient MRI to further evaluate your dizziness. There wasalso a nodule noted in the right lung base that is new since 2018. This should be evaluated as well on an outpatient basis. Please stay well-hydrated, drinking plenty of fluids throughout the day. Take your medications as prescribed. Be sure to get up slowly, allowing yourself plenty of time to gain equilibrium before walking. Return to emergency care if develop new dizziness, headaches, vision changes, weakness, or if you are very worried and need to be rechecked again immediately HPI General Date/Time Provider Initiated Documentation: 11/11/23 17:05 . HPI Narrative: Steve is a 78-year-old male with history of HTN, HLD, T2DM, and cardiac history who presents to the emergency department today for evaluation of ear pain. He reports he has had left ear pain on and off for the last 2 or 3 weeks, last night started having right ear pain initially rated 10 out of 10, today rated 2 out of 10 without intervention. He denies recent fever/chills, vision changes, headache, change in baseline dizziness, change in baseline tinnitus, drainage from ear, history of frequent AOM. No recent URI symptoms such as congestion/ru nny nose, sore throat, cough. No history of ear surgery. Physical exam remarkable for cerumen impaction left auditory canal. Right TM pearly lopez, translucent. No pain or manipulation of pinna or protrusion of ear. PERRL, EOMs intact. No nystagmus. No facial or neck rashes noted. No carotid bruit auscultated. Cranial nerves II through XII intact as tested. Normal finger to finger. 5 out of 5 muscle strength upper and lower extremities. Normal heart sounds. Easy work of breathing, lung sounds clear bilaterally 1800: After irrigation of left auditory canal, Steve stood up and became very dizzy, stumbled and had difficulty ambulating. Upon further evaluation, Steve does report that he has had increased dizziness with standing over the last day or so since the onset of ear pain, though he says it has been increasing in intensity for the last couple of months. He has not had it reevaluated since it worsened. DDx includes but is not limited to: Carotid artery dissection, posterior stroke, eustachian tube dysfunction, BPPV, labyrinthitis/vestibular neuritis, electrolyte imbalance, kidney dysfunction I independently interpreted the following tests: CBC notable for mild th rombocytopenia, platelets 96, unchanged from 12/30/2021. CMP notable for slightly elevated creatinine to BUN ratio, 1.6 and 35. Total bili and alk phos both elevated. Chest x-ray reassuring, no cardiomegaly or obvious infiltrates noted. Radiology did note a small nodule on CXR in the right lung base that is new since 2018. CTA brain and neck significant for stenosis of R and L vertebral arteries. EKG shows normal sinus rhythm, rate 77. No changes consistent with acute ischemia. Teleneuro consult ordered, discussed case with teleneurologist. He believes that today's dizziness episode was likely triggered by the ear irrigation, unlikely to be related to relatively uncharged stenosis based on previous scans that he was able to review. Recommend outpatient MRI. Patient is already on optimized therapy with dual antiplatelets and anticoagulation, no additional therapy is recommended at this time or emergent imaging. Reviewed discharge instructions with patient, including incidental finding on chest x-ray and reassuring workup today. Advised continued follow-up with PCP for outpatient MRI and further evaluation into dizziness. Reviewed red flags indicate need for return to emergency care. After discharge instructions Steve was able to get up and ambulate from the department without difficulty. Related Data Home Medications ?Medication ?Instructions ?Recorded ?Confirmed aspirin 81 mg tablet,delayed 1 tab PO DAILY 09/20/12 11/11/23 release (Aspir-) metformin 500 mg tablet 1,000 mg PO BID 07/05/16 11/11/23 acetaminophen 500 mg tablet 1,000 mg PO PRN PRN 09/17/16 11/11/23 (Tylenol Extra Strength) tamsulosin 0.4 mg capsule (Flomax) 0.4 mg PO DAILY ##20 09/18/16 11/11/23 clopidogrel 75 mg tablet (Plavix) 75 mg PO DAILY 01/15/18 11/11/23 cholecalciferol (vitamin D3) 50 50 mcg PO DAILY 05/27/21 11/11/23 mcg (2,000 unit) capsule (Vitamin D3) cyanocobalamin (vitamin B-12) 100 100 mcg PO DAILY 05/27/21 11/11/23 mcg tablet methocarbamol 500 mg tablet 500 mg PO Q6H PRN muscle spasm #14 05/27/21 11/11/23 tabs metoprolol tartrate 25 mg tablet 25 mg PO BID 05/27/21 11/11/23 nitroglycerin 0.4 mg sublingual 0.4 mg sublingual DIRECTED PRN 05/27/21 11/11/23 tablet timolol 0.25 % eye drops 1 - 2 drp ophthalmic (eye) BID 05/27/21 11/11/23 tramadol 50 mg tablet 50 mg PO BID PRN 05/27/21 11/11/23 isosorbide mononitrate 30 mg 30 mg PO DAILY 10/04/21 11/11/23 tablet,extended release 24 hr alirocumab 75 mg/mL subcutaneous 75 mg subcut Q2W 11/11/23 11/11/23 pen injector apixaban 5 mg tablet (Eliquis) 5 mg PO BID 11/11/23 11/11/23 empagliflozin 25 mg tablet 12.5 mg PO DAILY 11/11/23 11/11/23 mirabegron 25 mg tablet,extended 25 mg PO DAILY 11/11/23 11/11/23 release 24 hr Previous Rx's ?Medication ?Instructions ?Recorded tamsulosin 0.4 mg capsule (Flomax) 0.4 mg PO DAILY ##20 09/18/16 methocarbamol 500 mg tablet 500 mg PO Q6H PRN muscle spasm #14 05/27/21 tabs Allergies Allergy/AdvReac Type Severity Reaction Status Date / Time No Known Allergies Allergy Unverified 11/11/23 16:51 General Stated Complaint: EarProblem TIFFANIE: 4 Review of Systems Narrative: see HPI Exam Const General: cooperative, healthy appearing, comfortable, no acute distress, well developed and well groomed Nutritional Appearance: average body habitus Orientation: alert and oriented x3 HENMT Head: normal to inspection Ears: hearing grossly normal bilaterally, TM normal on the right, TM normal on the left (After irrigation) and EAC abnormal cerumen impaction on the left Face and sinus: normal facial exam and face symmetric Mouth: oral mucosae normal and moist mucous membranes Eyes Pupils: PERRL EOM: EOM intact bilaterally Neck Neck: normal visual inspection and full ROM Carotids: no bruits Resp Effort & Inspection: normal respiratory effort and able to speak in complete sentences Auscultation: clear to auscultation bilaterally Cardio Jugular venous pressure: no JVD Rate: regular rate Rhythm: regular rhythm GI Inspection: normal to inspection and non-distended Palpation: soft and nontender Neuro General: patient alert, patient oriented x3, tone normal and moves all extremities Cranial Nerves: CN's II-XI intact bilaterally, PERRL, EOM intact bilaterally, no nystagmus, facial strength normal, tongue midline, hearing normal, able to rotate head bilaterally and able to elevate shoulders bilaterally Cognition: normal cognition Speech: speech normal Gait: normal gait Motor: muscle tone normal throughout and strength 5/5 throughout Sensory Exam: no sensory deficits noted Coordination: rapid alternating movement UE normal Extrem General: no pedal edema Course Vital Signs Vital signs: Vital Signs Temperature 36.6 C 11/11/23 16:48 Pulse 79 11/11/23 16:48 Respiratory Rate 10 L 11/11/23 16:48 Blood Pressure 163/84 H 11/11/23 16:48 Pulse Oximetry 94 11/11/23 16:48 Temperature 36.6 C 11/11/23 16:48 Temperature Source Oral 11/11/23 16:48 Pulse 79 11/11/23 16:48 Respiratory Rate 10 L 11/11/23 16:48 Respiratory Effort Normal, Non-Labored 11/11/23 16:53 Blood Pressure 163/84 H 11/11/23 16:48 Blood Pressure Position Sitting 11/11/23 16:48 Pulse Oximetry 94 11/11/23 16:48 Oxygen Delivery Method Room Air 11/11/23 16:48 Oxygen Flow Rate 0 11/11/23 16:48 Pain Level 2 11/11/23 17:13 Medical Decision Making Imaging Data Radiologic Study: Radiologist's impression: Exam(s) XR CHEST 2V PA LATERAL EXAM: XR CHEST 2V PA LATERAL CLINICAL HISTORY: dizziness. TECHNIQUE: 2D digital imaging was performed. COMPARISON: CR XR CHEST 2V PA LATERAL from 01/15/2018 FINDINGS: 2 views: Again noted are sternotomy wires and bipolar left subclavian pacemaker with lead tips in RA and right ventricle, unchanged. Heart size is normal. The mediastinum is not widened. Left lung is clear. However, there is a small nodular infiltrate in the right lung base which was not evident on chest x-ray of 2018. This may be significant. There are no pleural effusions. No CHF. No pulmonary edema. IMPRESSION: Small nodular infiltrate in the right lung base.No pleural effusions. Sternotomy. Pacemaker. Normal heart size. No CHF Radiologic Study #2: Radiologist's impression: Exam(s) CT BRAIN NECK CTA Addendum dictated 11/11/2023 7:33 p.m. Please note that this report dictation was interrupted midway through the dictation and is continued as an addendum. 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 Above this level it is continuous and contributes to the formation of the basilar artery at the skull base. There is circumferential mural calcification in both vertebral arteries at the skull base noted, similar to previous. The right vertebral artery is calcified and heavily atherosclerotic at its origin with critical stenosis just beyond its origin (over 95 percent). Above this level it ascends in the right side foramen transversarium with luminal diameter 4 mm. At the skull base it also contributes to the formation of the basilar artery but there is also heavy circumferential mural plaque in the right vertebral artery at the skull base, similar to the opposite side. INTRACRANIAL ARTERIES: Anterior circulation: both internal carotid arteries are circumferentially calcified within the cavernous sinuses but without obvious critical stenosis at these levels. the superior clinoid aspects are also peripherally calcified but without critical stenosis. no aneurysms. both a1 segments are patent as are the anterior cerebral arteries. there is no aneurysm at the level of the anterior communicating artery. Both middle cerebral arteries are patent without significant stenosis nor intraluminal thrombus. No aneurysms. Posterior circulation: The basilar artery is patent. Distally it gives off superior cerebellar arteries and above this level terminates as patent bilateral posterior cerebral arteries. There is no aneurysm at the tip of the basilar artery nor elsewhere in the [id number]. BRAIN: There are no skull fractures nor fluid in the paranasal sinuses. There is no evidence of intracranial hemorrhage, mass effect, or shift of midline structures. No extra-axial fluid collections. 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 There are no ring enhancing lesions in the brain and there is no abnormal meningeal enhancement. IMPRESSION: 1. Patent intracranial arteries. 2. 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 Above this level it is patent and contributes to the formation of the basilar artery at the skull base. 3. There is critical stenosis (over 95 percent) in the proximal right vertebral artery prior to entering the foramen transversarium. The right vertebral artery above this level is patent and also contributes to the formation of the basilar artery at the skull base. 4. There is circumferential calcified plaque in both vertebral arteries at the skull base. 5. Mild stenosis in the carotid arteries in the neck, similar to the prior study of December 2021. 6. No acute intracranial findings. Again noted is evidence of a nonacute left occipital lobe infarct. There are no ring enhancing lesions in the brain and there is no abnormal meningeal enhancement. Quality:SDOH Health Related Social Needs: No Data to Display PFSH All Active Problems (Updated 11/11/23 @ 22:30 by Jaycee Carbajal) Otalgia (Acute) Dizziness (Acute) Lung nodule (Acute) Medical History (Updated 11/11/23 @ 22:30 by Jaycee Carbajal) Pacemaker HTN (hypertension) Hx of hyperlipidemia Atrial fibrillation DM w/o complication type II, uncontrolled Surgical History (Updated 05/27/21 @ 16:41 by Haylie Cardozo DO) History of knee surgery Family History Mother Diabetes Heart disease Father Heart disease Social History Smoking/Tobacco Use Status: Former Tobacco Use Quit Date: 02/20/73 Smoking risk assessment performed?: Yes Alcohol Intake: current Alcohol Intake frequency: holidays/special occasions only Drug use: Never Substance use type: does not use Housing: house Do you feel safe at home: Yes Do you feel safe in your relationship?: Yes
--- NOTE | 2023-11-11 17:30 | RT.EKG_ITS ---
APPROVED REPORT Exam: Resting ECG Reason for Exam: dizzines Patient Location: E HR:77 bpm ECG Measurements Heart Rate 77 AXIS SD 184 P 20 QRSd 101 QRS 244 QT 386 T 62 QTc 438 Conclusion Sinus rhythm...normal P axis, V-rate 60- 99 Inferior infarct, old...Q >35mS, II III aVF sinus rhtyhm, q waves inferior leads
[2023-11-11] MEDS: Hydrogen Peroxide 3% 480 ML BTL (17:31)
--- NOTE | 2023-11-11 17:45 | DI.CT_ITS ---
Exam(s) CT BRAIN NECK CTA EXAM: CT BRAIN NECK CTA CLINICAL HISTORY: sudden onset of worsening dizziness with R ear shonna. TECHNIQUE: Imaging Protocol: Axial CT angiography was performed with multi-slice acquisition and mu lti-planar and/or 3D reconstructions. CONTRAST MATERIAL: Intravenous: Omnipaque 350 Contrast volume:structured data in ml COMPARISON: CT CT BRAIN NECK CTA from 12/30/2021 FINDINGS: CTA Neck W: Right upper lobe scarring just below the right lung apex is noted. Aortic arch anatomy: The aortic arch anatomy is conventional and there is no significant stenosis at the origin of the great vessels off of the aortic arch. No intimal flap evident. Anterior circulation: Both common carotid arteries ascend with normal luminal diameters. Right carotid bifurcation is patent. Some plaque partially calcified plaque is again noted on the po sterior medial wall of the proximal right ICA, unchanged and with approximately 10-20 stenosis at thi s level. Above this level the right ICA is patent in the upper neck and skull base with some mural c alcification but no significant stenosis in the skull base. At the level of the left carotid bulb and proximal left ICA there is some calcified mural plaque agai n noted. There is stenosis of approximately 40% at this level. Above this level the left ICA in the upper neck is patent as well as in the skull base. Posterior circulation: The left vertebral artery is occluded at its origin off of the left subclavian artery. It is reconst ituted as a thin vessel within the left side foramen transverse area at approximately C6 level. Abov e this level it is patent and contributes to the formation of the basilar artery at the skull base al though both vertebral arteries do again exhibit have hree circumferential calcification at the skull base but without obvious critical stenosis at these levels. CTA Brain W: Anterior circulation: Both internal carotid arteries are patent in the skull base-carotid canals as well as within the cave rnous sinuses. The supraclinoid aspects of the ICAs are patent. Both A1 segments are patent as are the anterior cer ebral arteries and there is no evidence of aneurysm at the level of the anterior communicating artery . Both middle cerebral arteries are patent with no evidence of significant stenosis nor intraluminal th rombus. There also no aneurysms of these vessels. Posterior circulation: The basilar artery ascends in the midline. Distally it gives off patent bilateral superior cerebella r arteries. Above this level the basilar artery terminates as patent bilateral posterior cerebral arteries. There is no evidence of aneurysm at the tip of the basilar artery nor elsewhere in the [id number] is. CT BRAIN: There is no evidence of intracranial hemorrhage, mass effect, or shift of midline structures. There are no extra-axial fluid collections. Ventricles are not enlarged or shifted. Again noted is eviden ce of prior left occipital lobe infarct. There are no ring enhancing lesions in the brain. No abnor mal meningeal enhancement.. IMPRESSION: 1. Patent carotid arteries in the neck. No hemodynamically significant stenosis. 2. Patent vertebral arteries. 3. Patent intracranial arteries. 4. RADIATION DOSE DELIVERED: 2,155.36mGy.cm Total DLP DATA REPOSITORY: All CT scans at this facility are submitted to the National Radiology Data Registry (NRDR) Dose Index Registry (DIR) with the [employer] ([employer]). RADIATION OPTIMIZATION: All CT scans at this facility use at least one of these dose optimization te chniques: automated exposure control; mA and/or kV adjustment per patient size (includes targeted exa ms where dose is matched to clinical indication); or iterative reconstruction.
[2023-11-11 18:15] LABS: HCT 48.3 % (40.0-50.0); HGB 16.5 g/dL (13.5-17.5); MCH 30.2 pg (27.0-33.0); MCHC 34.2 % (32.0-36.0); MCV 88 fL (80-95); MPV 9.8 fL (8.0-11.0); RBC 5.47 10^6/uL (4.36-5.78); RDW 12.2 % (11.8-14.1); RDW-SD 40.1 fL; WBC 5.06 10^3/uL (4.4-10.8)
[2023-11-11 18:31] LABS: ALT 32 U/L (16-63); AST 25 U/L (15-37); Albumin 4.3 g/dL (3.4-5.0); Alkaline Phosphatase 157 U/L (46-116); BUN 35 mg/dL (7-18); Bilirubin, Total 2.39 mg/dL (0.2-1.0); CREATININE 1.6 mg/dL (0.70-1.30); Calcium 9.7 mg/dL (8.5-10.1); Chloride 100 mmol/L (98-107); Estimated GFR 43.83 (mL/min/1.73m2); Glucose 293 mg/dL (74-106); Platelet Count 96 10^3/uL (130-400); Sodium 135 mmol/L (136-145); Troponin I 16 ng/L (<or=76)
[2023-11-11] MEDS: Omnipaque 350 MG/ML 100 ML BTL IJ (19:01)
[2023-11-11] MEDS: Normal Saline - Diluent 50 ML VIAL IJ (19:03)
--- NOTE | 2023-11-11 19:08 | DI.RAD_ITS ---
Exam(s) XR CHEST 2V PA LATERAL EXAM: XR CHEST 2V PA LATERAL CLINICAL HISTORY: dizziness. TECHNIQUE: 2D digital imaging was performed. COMPARISON: CR XR CHEST 2V PA LATERAL from 01/15/2018 FINDINGS: 2 views: Again noted are sternotomy wires and bipolar left subclavian pacemaker with lead tips in RA and right ventricle, unchanged. Heart size is normal. The mediastinum is not widened. Left lung is clear. However, there is a small nodular infiltrate in the right lung base which was no t evident on chest x-ray of 2018. This may be significant. There are no pleural effusions. No CHF. No pulmonary edema. IMPRESSION: Small nodular infiltrate in the right lung base.No pleural effusions. Sternotomy. Pacemaker. Normal heart size. No CHF. DATA REPOSITORY: RADIATION DOSE DELIVERED:
[2023-11-11 19:38] LABS: Troponin I 16 ng/L (<or=76)
--- NOTE | 2023-11-11 20:53 | DI.VRAD_ITS ---
PROCEDURE INFORMATION: Exam: CTA Head Without And With Contrast, Arteriography Exam date and time: 11/11/2023 6:45 PM Age: 78 years old Clinical indication: Dizziness TECHNIQUE: Imaging protocol: Computed tomographic angiography of the head without and with contrast. Exam focused on the arteries. 3D rendering (Not supervised by radiologist): MIP and/or 3D reconstructed images were created by the technologist. Contrast material: OMNIPAQUE 350; Contrast volume: 70 ml; Contrast route: INTRAVENOUS (IV); COMPARISON: CT BRAIN NECK CTA 12/30/2021 4:20 PM FINDINGS: ANTERIOR CIRCULATION: Right internal carotid artery: Intracranial segment is patent with no significant stenosis or occlusion. No aneurysm. Cavernous portion calcification. Right middle cerebral artery: No occlusion or significant stenosis. No aneurysm. Right anterior cerebral artery: No occlusion or significant stenosis. No aneurysm. Left internal carotid artery: Intracranial segment is patent with no significant stenosis. No aneurysm. Cavernous portion calcification. Left middle cerebral artery: No occlusion or significant stenosis. No aneurysm. Left anterior cerebral artery: No occlusion or significant stenosis. No aneurysm. POSTERIOR CIRCULATION: Right vertebral artery: Once again noted is the calcific plaque involving the V4 segment of the patent right vertebral artery without occlusion or severe stenosis. Left vertebral artery: Once again noted is the calcific plaque involving the V4 segment of the patent left vertebral artery without occlusion or severe stenosis. Basilar artery: No occlusion or significant stenosis. No aneurysm. Right posterior cerebral artery: No occlusion or significant stenosis. No aneurysm. Left posterior cerebral artery: No occlusion or significant stenosis. No aneurysm. HEAD: Brain: Compared to 12/30/2021, no interval change in old areas of ischemia within the left temporal-occipital lobe region or the medial right occipital lobe. Diffuse cerebral atrophy. No acute intracranial hemorrhage. Cerebral ventricles: Ventricular prominence in this patient with diffuse cerebral atrophy. Bones: Unremarkable for patient age. Orbital cavities: Prior cataract surgery. Paranasal sinuses: No significant disease of the paranasal sinuses. Mastoid air cells: Normally aerated mastoid air cells. Soft tissues: Unremarkable. IMPRESSION: 1. Compared to 12/30/2021, no interval change in old areas of ischemia within the left temporal-occipital lobe region or the medial right occipital lobe. 2. Compared to 12/30/2021, no interval change in the CTA head examination. No large vessel occlusion or aneurysm. PROCEDURE INFORMATION: Exam: CTA Neck Without And With Contrast Exam date and time: 11/11/2023 6:45 PM Age: 78 years old Clinical indication: Dizziness TECHNIQUE: Imaging protocol: Computed tomographic angiography of the neck without and with contrast. Exam focused on the cervical segments of the vasculature. 3D rendering (Not supervised by radiologist): MIP and/or 3D reconstructed images were created by the technologist. Contrast material: OMNIPAQUE 350; Contrast volume: 70 ml; Contrast route: INTRAVENOUS (IV); COMPARISON: CT BRAIN NECK CTA 12/30/2021 4:20 PM FINDINGS: Right common carotid artery: No stenosis. No dissection or occlusion. Right internal carotid artery: Small amount of calcific plaque within the proximal right internal carotid artery without occlusion or significant stenosis. Right external carotid artery: No occlusion or stenosis of the origin. Left common carotid artery: No stenosis. No dissection or occlusion. Left internal carotid artery: Small amount of calcific plaque within the proximal left internal carotid artery without occlusion or significant stenosis. Left external carotid artery: No occlusion or stenosis of the origin. Right vertebral artery: Compared to 12/30/2021, once again noted is the stable severe stenosis involving the proximal right vertebral artery. 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 Soft tissues: No significant soft tissue swelling. Bones/joints: Spinal degenerative changes. Lungs: Old area of scarring within the superolateral right upper lobe. IMPRESSION: 1. 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 2. 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 3. Unchanged small amount of calcific plaque within the proximal internal carotid arteries bilaterally without occlusion or significant stenosis. REFERENCES: NASCET CRITERIA. The degree of stenosis in the cervical segment of the internal carotid artery is based on NASCET criteria. Normal is no stenosis. Mild is less than 50% stenosis. Moderate is 50-69% stenosis. Severe is 70% to 99% stenosis. Total occlusion is no detectable patent lumen. Dictated and Authenticated by: Gama Seals MD. Ordering:ELVER Champion MD
[2023-11-11 21:39] LABS: Troponin I 17 ng/L (<or=76)
== END 2023-11-11 22:39 | disposition home or self-care (01) ==
PROVIDERS: Emergency Provider Nurse Practitioner Family
DX: H92.03 Otalgia, bilateral (principal); R42 Dizziness and giddiness; R91.1 Solitary pulmonary nodule; I10 Essential (primary) hypertension; E78.5 Hyperlipidemia, unspecified; I48.91 Unspecified atrial fibrillation; E11.9 Type 2 diabetes mellitus without complications; Z95.0 Presence of cardiac pacemaker; Z79.82 Long term (current) use of aspirin; Z79.84 Long term (current) use of oral hypoglycemic drugs; Z79.02 Long term (current) use of antithrombotics/antiplatelets; Z87.891 Personal history of nicotine dependence
CPT/HCPCS: 70496; 70498; 80053; 85027; 93005; 71046; 84484; 93010; J3490

== ENCOUNTER 2023-12-08 17:00 | Outpatient (CLI) | payer MEDICARE, BC, SELFPAY ==
[2023-12-12 12:26] LABS: PSA, Ultrasensitive 0.46 ng/mL (<= 6.5)
== END 2023-12-08 17:01 | disposition home or self-care (01) ==
LOC: LBO 17:11
PROVIDERS: Visit Provider Physician Assistant
DX: C61 Malignant neoplasm of prostate (principal)
CPT/HCPCS: 36415; 84153

== ENCOUNTER 2023-12-27 13:24 | Emergency (ER) | payer OTHER, BC, SELFPAY ==
[2023-12-27 13:30] VITALS: BP 188/88; PULSE 72; RESP 12; TEMP 36.3; O2SAT 98
--- NOTE | 2023-12-27 14:16 | ED.GENADUL_ITS ---
Discharge Plan Disposition Patient Disposition: Home Condition: Good Discharge Details Chief Complaint: Urinary Clinical Impression: Hematuria Primary Care Provider: Unknown,Unknown ED Provider: Werner Viveros Home Meds and New Rx's Prescriptions: No Action aspirin [Aspir-81] 81 MG tablet,delayed release (DR/EC) 1 tab PO DAILY metformin 500 MG tablet 1,000 mg PO BID Patient Comments: changed to glipizide clopidogrel [Plavix] 75 mg Tablet 75 mg PO DAILY cholecalciferol (vitamin D3) [Vitamin D3] 50 mcg (2,000 unit) Capsule 50 mcg PO DAILY cyanocobalamin (vitamin B-12) 100 mcg Tablet 100 mcg PO DAILY metoprolol tartrate 25 mg Tablet 25 mg PO BID nitroglycerin 0.4 mg Tablet, Sublingual 0.4 mg sublingual DIRECTED PRN timolol 0.25 % Drops 1 - 2 drp ophthalmic (eye) BID tramadol 50 mg Tablet 50 mg PO BID PRN methocarbamol 500 mg tablet 500 mg PO Q6H PRN (Reason: muscle spasm) Qty: 14 0RF alirocumab 75 mg/mL pen injector 75 mg subcut Q2W Eliquis 5 mg tablet 5 mg PO BID empagliflozin 25 mg tablet 12.5 mg PO DAILY mirabegron 25 mg tablet extended release 24 hr 25 mg PO DAILY acetaminophen [Tylenol Extra Strength] 500 MG tablet 1,000 mg PO PRN PRN tamsulosin [Flomax] 0.4 MG capsule 0.4 mg PO DAILY Qty: 20 0RF Patient Comments: not taking isosorbide mononitrate 30 mg Tablet Extended Release 24 Hr 30 mg PO DAILY Discharge Instructions Instructions: Blood in Urine (Hematuria), Adult ED Additional Instructions: At this time there is no infection in your urine. The urine does show evidence of blood, which is likely brought about by your blood thinner Eliquis use. Please follow-up closely with Dr. Joshua for further bladder evaluation. You may develop a large clot that clogs your bladder and ability to urinate, if you are unable to urinate please return immediately for potential Bocanegra catheter. If you notice any worsening of your symptoms, or any new symptoms such as vomiting, diarrhea, fever, chills, shortness of breath, chest pain, numbness, weakness, or fainting , please return immediately to the emergency department for reevaluation. Please follow up with your primary care provider as soon as possible for reassessment and reevaluation. As always, it was a pleasure participating in your medical care today. Referrals: Manohar Joshua MD [ [facility] STAFF PHYSICIAN] - [facility] General Date/Time Provider Initiated Documentation: 12/27/23 13:37 . [facility] Narrative: This is a pleasant 78-year-old male with past medical history of hypertension, diabetes, A-fib and a pacemaker, currently on Eliquis, presents today for evaluation of urinary frequency. Patient states that since 3 AM he has had intermittent urinary frequency, with small frequent episodes. He does take Flomax at baseline. He denies fever or chills, he denies significant pain. He denies vomiting or diarrhea. He denies history of having prostate issues, he denies urinary retention in the past. No other complaints at this time. No complaint of genital pain. Related Data Home Medications ?Medication ?Instructions ?Recorded ?Confirmed aspirin 81 mg tablet,delayed 1 tab PO DAILY 09/20/12 12/27/23 release (Aspir-) metformin 500 mg tablet 1,000 mg PO BID 07/05/16 12/27/23 acetaminophen 500 mg tablet 1,000 mg PO PRN PRN 09/17/16 12/27/23 (Tylenol Extra Strength) tamsulosin 0.4 mg capsule (Flomax) 0.4 mg PO DAILY ##20 09/18/16 12/27/23 clopidogrel 75 mg tablet (Plavix) 75 mg PO DAILY 01/15/18 12/27/23 cholecalciferol (vitamin D3) 50 50 mcg PO DAILY 05/27/21 12/27/23 mcg (2,000 unit) capsule (Vitamin D3) cyanocobalamin (vitamin B-12) 100 100 mcg PO DAILY 05/27/21 12/27/23 mcg tablet methocarbamol 500 mg tablet 500 mg PO Q6H PRN muscle spasm #14 05/27/21 12/27/23 tabs metoprolol tartrate 25 mg tablet 25 mg PO BID 05/27/21 12/27/23 nitroglycerin 0.4 mg sublingual 0.4 mg sublingual DIRECTED PRN 05/27/21 12/27/23 tablet timolol 0.25 % eye drops 1 - 2 drp ophthalmic (eye) BID 05/27/21 12/27/23 tramadol 50 mg tablet 50 mg PO BID PRN 05/27/21 12/27/23 isosorbide mononitrate 30 mg 30 mg PO DAILY 10/04/21 12/27/23 tablet,extended release 24 hr alirocumab 75 mg/mL subcutaneous 75 mg subcut Q2W 11/11/23 12/27/23 pen injector apixaban 5 mg tablet (Eliquis) 5 mg PO BID 11/11/23 12/27/23 empagliflozin 25 mg tablet 12.5 mg PO DAILY 11/11/23 12/27/23 mirabegron 25 mg tablet,extended 25 mg PO DAILY 11/11/23 12/27/23 release 24 hr Previous Rx's ?Medication ?Instructions ?Recorded tamsulosin 0.4 mg capsule (Flomax) 0.4 mg PO DAILY ##20 09/18/16 methocarbamol 500 mg tablet 500 mg PO Q6H PRN muscle spasm #14 05/27/21 tabs Allergies Allergy/AdvReac Type Severity Reaction Status Date / Time No Known Allergies Allergy Unverified 12/27/23 13:33 General Stated Complaint: Urinary TIFFANIE: 3 Review of Systems All systems reviewed & are unremarkable except as noted in HPI and below Exam Narrative Exam Narrative: 1.Const: Well-nourished, Well-developed, appearing stated age 2.Eyes: PERRL, no conjunctival injection, and symmetrical lids. 3.ENT: Atraumatic external nose and ears. Moist MM. Neck: Symmetric, trachea midline, No thyromegaly. 4.CVS: +S1/S2, Peripheral pulses 2+ and equal in all extremities. Brisk capillary refill in all extremities. 5.RESP: Unlabored respiratory effort. Clear to auscultation bilaterally. No wheezes rales or rhonchi 6.GI: Soft, Nontender/Nondistended, No hepatosplenomegaly. No guarding or rebound. Genital exam demonstrates no evidence of penile tenderness, urethral discharge, or suprapubic tenderness. 7.MSK: Normocephalic/Atraumatic, Extremities w/o deformity or ttp No cyanosis or clubbing, Normal movement of all extremities 8.Skin: Warm, Dry. No rashes or lesions. 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 Sensation grossly intact, no focal neurologic deficits. 10.Psych: (AAO) x3. Appropriate mood and affect Course Vital Signs Vital signs: Vital Signs Temperature 36.3 C L 12/27/23 13:30 Pulse 72 12/27/23 13:30 Respiratory Rate 12 12/27/23 13:30 Blood Pressure 188/88 H 12/27/23 13:30 Pulse Oximetry 98 12/27/23 13:30 Temperature 36.3 C L 12/27/23 13:30 Temperature Source Oral 12/27/23 13:30 Pulse 72 12/27/23 13:30 Respiratory Rate 12 12/27/23 13:30 Respiratory Effort Normal, Non-Labored 12/27/23 13:36 Blood Pressure 188/88 H 12/27/23 13:30 Blood Pressure Position Sitting 12/27/23 13:30 Pulse Oximetry 98 12/27/23 13:30 Oxygen Delivery Method Room Air 12/27/23 13:30 Oxygen Flow Rate 0 12/27/23 13:30 Pain Level 0 12/27/23 13:30 Medical Decision Making This is a pleasant 78-year-old male with past medical history of hypertension, diabetes, A-fib and a pacemaker, currently on Eliquis, presents today for evaluation of urinary frequency. Patient states that since 3 AM he has had intermittent urinary frequency, with small frequent episodes. He does take Flomax at baseline. He denies fever or chills, he denies significant pain. He denies vomiting or diarrhea. He denies history of having prostate issues, he denies urinary retention in the past. No other complaints at this time. No complaint of genital pain. Exam demonstrates well-appearing male, no genital tenderness, no urethral discharge. No suprapubic tenderness. Concern is for potential UTI. Less likely bleeding and clots. Will check his urine, monitor closely and reassess. 3:36 PM Patient's urine has returned with evidence of hematuria but no evidence of infection. Patient is still urinating well. There is no evidence of difficulty for urination at this time. No evidence of retention. He has no flank pain whatsoever, and no suprapubic pain whatsoever. No indication for emergent CT imaging as symptoms are inconsistent with kidney stone. Will place referral for Dr. Joshua for further evaluation of potential source of bleeding. Patient otherwise has no tachycardia or hypotension to suggest significant blood loss. Suspect potential ulcer small lesion causing the bleeding with his Eliquis use. This patient is urinating well, no indication for Bocanegra catheter. We discussed risks and benefits of holding Eliquis for 1 day. Patient stable for discharge, will follow-up closely with Dr. Joshua. I have extensively reviewed the treatment plan and discharge instructions with the patient. I have addressed all patient concerns at this time. The patient was made aware of what symptoms to monitor for that would warrant a return to the emergency department. Discussed the plan with the patient, they demonstrate verbal understanding and agreement with our assessment and plan at this time. The documentation in this chart was dictated using [employer] dictation software. Please excuse any dictation errors. Quality:SDOH Health Related Social Needs: No Data to Display PFSH All Active Problems (Updated 12/27/23 @ 15:35 by Werner Viveros DO) Hematuria (Acute) Medical History Pacemaker HTN (hypertension) Hx of hyperlipidemia Atrial fibrillation DM w/o complication type II, uncontrolled Surgical History History of knee surgery Family History Mother Diabetes Heart disease Father Heart disease Social History Smoking/Tobacco Use Status: Former Tobacco Use Quit Date: 02/20/73 Smoking risk assessment performed?: Yes Alcohol Intake: current Alcohol Intake frequency: holidays/special occasions only Drug use: Never Substance use type: does not use Housing: house Do you feel safe at home: Yes Do you feel safe in your relationship?: Yes
[2023-12-27 15:01] LABS: Bilirubin Negative (Negative); Blood Large (Negative); Clarity Clear (Clear); Glucose >=1000 mg/dL (Negative); Ketones 15 mg/dL (Negative); Leukocyte Esterase Negative (Negative); Nitrite Negative (Negative); Specific Gravity 1.015 (1.005-1.025); Urobilinogen 0.2 mg/dL (Up to 0.2); pH 5.5 (5-8)
[2023-12-27 15:16] LABS: Bacteria Negative HPF (Negative); C & S Indicated? No; Casts 0-2 Hyaline LPF (Negative); Crystals Negative HPF (Negative); Epithelial Cells Rare HPF (Negative); Mucus Trace (Negative); RBC 20-50 HPF (0-2); WBC 0-2 HPF (0-5)
[2023-12-27 15:46] VITALS: BP 158/70; PULSE 71; RESP 16; TEMP 36.4; O2SAT 98
== END 2023-12-27 15:47 | disposition home or self-care (01) ==
PROVIDERS: Emergency Provider Student in an Organized Health Care Education/Training Program
DX: R31.9 Hematuria, unspecified (principal); R11.2 Nausea with vomiting, unspecified; E78.5 Hyperlipidemia, unspecified; E11.9 Type 2 diabetes mellitus without complications; I48.91 Unspecified atrial fibrillation; Z79.82 Long term (current) use of aspirin; Z79.02 Long term (current) use of antithrombotics/antiplatelets; Z79.84 Long term (current) use of oral hypoglycemic drugs; Z79.01 Long term (current) use of anticoagulants; Z95.0 Presence of cardiac pacemaker; Z87.891 Personal history of nicotine dependence
CPT/HCPCS: 99283; 81003; 81015

== ENCOUNTER 2024-02-23 14:26 | Outpatient (CLI) | payer MEDICARE, SELFPAY ==
[2024-02-26 12:23] LABS: PSA, Ultrasensitive 0.77 ng/mL (<= 6.5)
== END 2024-02-23 14:27 | disposition home or self-care (01) ==
LOC: LBO 14:27
PROVIDERS: Physician Assistant; Visit Provider Colon & Rectal Surgery
DX: C61 Malignant neoplasm of prostate (principal)
CPT/HCPCS: 36415; 84153

== ENCOUNTER 2024-06-24 16:06 | Outpatient (CLI) | payer MEDICARE, SELFPAY ==
[2024-06-27 11:49] LABS: PSA, Ultrasensitive 0.83 ng/mL (<= 6.5)
== END 2024-06-24 16:07 | disposition home or self-care (01) ==
LOC: LBO 16:07
PROVIDERS: Visit Provider Physician Assistant
DX: C61 Malignant neoplasm of prostate (principal)
CPT/HCPCS: 36415; 84153

== ENCOUNTER → 2024-08-20 13:17 | Outpatient (BNVA) | payer MEDICARE, BC, SELFPAY | PROVIDERS: Visit Provider Nurse Practitioner Gerontology | DX: R39.15 Urgency of urination (principal); R31.29 Other microscopic hematuria; Z85.46 Personal history of malignant neoplasm of prostate; R39.9 Unspecified symptoms and signs involving the genitourinary system; E11.59 Type 2 diabetes mellitus with other circulatory complications; I10 Essential (primary) hypertension | CPT/HCPCS: 99215; 81002; 51798 ==

== ENCOUNTER 2024-09-15 03:40 | Emergency (ER) | payer MEDICARE, BC, SELFPAY ==
[2024-09-15 03:46] VITALS: BP 135/109; PULSE 100; RESP 16; TEMP 37.7; O2SAT 97
[2024-09-15 03:59] VITALS: TEMP 36.8
[2024-09-15] MEDS: predniSONE 20 MG TAB 60 MG PO (04:08)
[2024-09-15] MEDS: Loratidine 10 MG TAB PO (04:08)
--- NOTE | 2024-09-15 04:13 | W.ED.GENAD ---
Discharge Plan Disposition Patient Disposition: Home Condition: Good Discharge Details Clinical Impression: Cutaneous vasculitis Primary Care Provider: Unknown,Unknown ED Provider: Werner Viveros Home Meds and New Rx's Prescriptions: New prednisone 50 mg tablet 50 mg PO DAILY Qty: 5 0RF hydroxyzine HCl 25 mg tablet 25 mg PO QID Qty: 60 0RF loratadine 10 mg tablet 10 mg PO DAILY Qty: 20 0RF No Action aspirin 325 mg tablet 325 mg PO DAILY metformin 500 MG tablet 1,000 mg PO BID Patient Comments: changed to glipizide clopidogrel [Plavix] 75 mg Tablet 75 mg PO DAILY cholecalciferol (vitamin D3) [Vitamin D3] 50 mcg (2,000 unit) Capsule 50 mcg PO DAILY cyanocobalamin (vitamin B-12) 100 mcg Tablet 100 mcg PO DAILY metoprolol tartrate 25 mg Tablet 25 mg PO BID nitroglycerin 0.4 mg Tablet, Sublingual 0.4 mg sublingual DIRECTED PRN timolol 0.25 % Drops 1 - 2 drp ophthalmic (eye) BID tramadol 50 mg Tablet 50 mg PO BID PRN methocarbamol 500 mg tablet 500 mg PO Q6H PRN (Reason: muscle spasm) Qty: 14 0RF alirocumab 75 mg/mL pen injector 75 mg subcut Q2W Eliquis 5 mg tablet 5 mg PO BID empagliflozin 25 mg tablet 12.5 mg PO DAILY mirabegron 25 mg tablet extended release 24 hr 25 mg PO DAILY acetaminophen [Tylenol Extra Strength] 500 MG tablet 1,000 mg PO PRN PRN tamsulosin [Flomax] 0.4 MG capsule 0.4 mg PO DAILY Qty: 20 0RF Patient Comments: not taking isosorbide mononitrate 30 mg Tablet Extended Release 24 Hr 30 mg PO DAILY Discharge Instructions Instructions: Vasculitis Additional Instructions: At this time it appears that you have a reaction to either your blood thinner Eliquis or your antiplatelet agent Plavix. Unfortunately there is significant risk if you stop taking your blood thinner Eliquis because of your persistent atrial fibrillation. Because of this we will treat the rash with steroids, loratadine, and Atarax for itching. However I would like you to continue the Eliquis for the time being due to the significant potential risk of a stroke if you stop. However it would be reasonable to stop taking the Plavix for the next week as this has a much lower likelihood of causing a problem by stopping. Your new prescriptions have been sent to your pharmacy for pickup. It is absolutely critical that you monitor your symptoms closely. If you notice worsening or spreading of the rash or new symptoms you need to return immediately for reassessment. Please follow-up closely with your primary care provider this week for rash recheck. There is an uncommon but potential scenario where the rash could worsen into a much more critical disease process. This is why it is very important to return if your symptoms are not improving If you notice any worsening of your symptoms, or any new symptoms such as vomiting, diarrhea, fever, chills, shortness of breath, chest pain, numbness, weakness, or fainting , please return immediately to the emergency department for reevaluation. Please follow up with your primary care provider as soon as possible for reassessment and reevaluation. As always, it was a pleasure participating in your medical care today. Referrals: Arianna Alvarado MD, ALANNA [[facility], Medicine] [facility] General Date/Time Provider Initiated Documentation: 09/15/24 03:44. HPI Narrative: 79-year-old male with a past medical history of previous prostate cancer, atrial fibrillation, pacemaker, hypertension, high cholesterol, type 2 diabetes mellitus, who is on Eliquis, Plavix, and aspirin, who presents today for evaluation of rash. Patient states that he had no rash yesterday, and then when he awoke this evening to go to the bathroom he did not notice any significant rash over his legs, trunk, and arms. It is itchy in nature. He denies any fever or chills. No hematuria, abdominal pain or chest pain. No rash like this in the past. He denies any other complaints at this time. No other modifying factors. Related Data Home Medications ?Medication ?Instructions ?Recorded ?Confirmed metformin 500 mg tablet 1,000 mg PO BID 07/05/16 09/15/24 acetaminophen 500 mg tablet 1,000 mg PO PRN PRN 09/17/16 09/15/24 (Tylenol Extra Strength) tamsulosin 0.4 mg capsule (Flomax) 0.4 mg PO DAILY ##20 09/18/16 09/15/24 clopidogrel 75 mg tablet (Plavix) 75 mg PO DAILY 01/15/18 09/15/24 cholecalciferol (vitamin D3) 50 50 mcg PO DAILY 05/27/21 09/15/24 mcg (2,000 unit) capsule (Vitamin D3) cyanocobalamin (vitamin B-12) 100 100 mcg PO DAILY 05/27/21 09/15/24 mcg tablet methocarbamol 500 mg tablet 500 mg PO Q6H PRN muscle spasm #14 05/27/21 09/15/24 tabs metoprolol tartrate 25 mg tablet 25 mg PO BID 05/27/21 09/15/24 nitroglycerin 0.4 mg sublingual 0.4 mg sublingual DIRECTED PRN 05/27/21 09/15/24 tablet timolol 0.25 % eye drops 1 - 2 drp ophthalmic (eye) BID 05/27/21 09/15/24 tramadol 50 mg tablet 50 mg PO BID PRN 05/27/21 09/15/24 isosorbide mononitrate 30 mg 30 mg PO DAILY 10/04/21 09/15/24 tablet,extended release 24 hr alirocumab 75 mg/mL subcutaneous 75 mg subcut Q2W 11/11/23 09/15/24 pen injector apixaban 5 mg tablet (Eliquis) 5 mg PO BID 11/11/23 09/15/24 empagliflozin 25 mg tablet 12.5 mg PO DAILY 11/11/23 09/15/24 mirabegron 25 mg tablet,extended 25 mg PO DAILY 11/11/23 09/15/24 release 24 hr aspirin 325 mg tablet 325 mg PO DAILY 08/20/24 09/15/24 hydroxyzine HCl 25 mg tablet 25 mg PO QID #60 tabs 09/15/24 loratadine 10 mg tablet 10 mg PO DAILY #20 tabs 09/15/24 prednisone 50 mg tablet 50 mg PO DAILY #5 tabs 09/15/24 Previous Rx's ?Medication ?Instructions ?Recorded tamsulosin 0.4 mg capsule (Flomax) 0.4 mg PO DAILY ##20 09/18/16 methocarbamol 500 mg tablet 500 mg PO Q6H PRN muscle spasm #14 05/27/21 tabs hydroxyzine HCl 25 mg tablet 25 mg PO QID #60 tabs 09/15/24 loratadine 10 mg tablet 10 mg PO DAILY #20 tabs 09/15/24 prednisone 50 mg tablet 50 mg PO DAILY #5 tabs 09/15/24 Allergies Allergy/AdvReac Type Severity Reaction Status Date / Time No Known Allergies Allergy Unverified 09/15/24 03:50 General Stated Complaint: RashLesion TIFFANIE: 4 Exam Narrative Exam Narrative: 1.Const: Well-nourished, Well-developed, appearing stated age 2.Eyes: PERRL, no conjunctival injection, and symmetrical lids. 3.ENT: Atraumatic external nose and ears. Moist MM. Neck: Symmetric, trachea midline, No thyromegaly. 4.CVS: +S1/S2, Peripheral pulses 2+ and equal in all extremities. Brisk capillary refill in all extremities. 5.RESP: Unlabored respiratory effort. Clear to auscultation bilaterally. No wheezes rales or rhonchi 6.GI: Soft, Nontender/Nondistended, No hepatosplenomegaly. No guarding or rebound. 7.MSK: Normocephalic/Atraumatic, Extremities w/o deformity or ttp No cyanosis or clubbing, Normal movement of all extremities 8.Skin: Warm, Dry. Patient demonstrates notable rash over his legs abdomen thorax and arms. Multiple small 1 cm vasculitis like lesions which are nonblanching, erythematous, and somewhat well-circumscribed. There is coalescence in some areas. Whereas in other areas the lesions are isolated. They are not raised, they are not palpable purpura. Negative Nikolsky sign. No large vesicles or bulla. No oral lesions. No mucosal lesions. No evidence of severe cellulitis. No evidence of vaccine preventable rash. 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 Sensation grossly intact, no focal neurologic deficits. 10.Psych: (AAO) x3. Appropriate mood and affect Course Vital Signs Vital signs: Vital Signs Temperature 37.7 C H 09/15/24 03:46 Pulse 100 H 09/15/24 03:46 Respiratory Rate 16 09/15/24 03:46 Blood Pressure 135/109 H 09/15/24 03:46 Pulse Oximetry 97 09/15/24 03:46 Temperature 36.8 C 09/15/24 03:59 Temperature Source Oral 09/15/24 03:59 Pulse 100 H 09/15/24 03:46 Respiratory Rate 16 09/15/24 03:46 Blood Pressure 135/109 H 09/15/24 03:46 Pulse Oximetry 97 09/15/24 03:46 Oxygen Delivery Method Room Air 09/15/24 03:46 Oxygen Flow Rate 0 09/15/24 03:46 Medical Decision Making 79-year-old male with a past medical history of previous prostate cancer, atrial fibrillation, pacemaker, hypertension, high cholesterol, type 2 diabetes mellitus, who is on Eliquis, Plavix, and aspirin, who presents today for evaluation of rash. Patient states that he had no rash yesterday, and then when he awoke this evening to go to the bathroom he did not notice any significant rash over his legs, trunk, and arms. It is itchy in nature. He denies any fever or chills. No hematuria, abdominal pain or chest pain. No rash like this in the past. He denies any other complaints at this time. No other modifying factors. Patient demonstrates notable rash over his legs abdomen thorax and arms. Multiple small 1 cm vasculitis like lesions which are nonblanching, erythematous, and somewhat well-circumscribed. There is coalescence in some areas. Whereas in other areas the lesions are isolated. They are not raised, they are not palpable purpura. Negative Nikolsky sign. No large vesicles or bulla. No oral lesions. No mucosal lesions. No evidence of severe cellulitis. No evidence of vaccine preventable rash. Please see associated images. Symptoms at this stage appear consistent with a mild to moderate vasculitis likely secondary to his anticoagulant use, but potentially secondary to Plavix. He has no hematuria, no chest pain or abdominal pain. No fever.No current clinical evidence of staph scalded skin syndrome, erythema multiforme, erythema migrans, toxic epidermal necrolysis, Hagan-Cole syndrome, Kawasaki-like rash, meningococcemia, pemphigus vulgaris, or necrotizing fasciitis. Patient is on Eliquis for his atrial fibrillation. He is actively in A-fib at a baseline. I do feel there would be significant risks taking him off of his Eliquis for the time being in regards to stroke potential. As this may be potential vasculitis from Plavix, I also feel it would be reasonable to hold the Plavix for the next week. We will treat with steroids, loratadine, and Atarax for his itching. He will require close follow-up with his primary care provider Dr. Dobbertin for reassessment in the next few days to make sure the rash is improving. If it is not improving he will need to be stopped on the Eliquis, and either accept the risk of no anticoagulation, or potentially transitioning to another anticoagulant which could also continue or perpetuate the problem. I discussed all of this with the patient. Medications were sent to his pharmacy. Discussed red flags for which to return. I have extensively reviewed the treatment plan and discharge instructions with the patient. I have addressed all patient concerns at this time. The patient was made aware of what symptoms to monitor for that would warrant a return to the emergency department. Discussed the plan with the patient, they demonstrate verbal understanding and agreement with our assessment and plan at this time. The documentation in this chart was dictated using [email or web address] dictation software. Please excuse any dictation errors. PFSH All Active Problems (Updated 09/15/24 @ 04:18 by Werner Viveros DO) Cutaneous vasculitis (Acute) Microscopic hematuria (Acute) Lower urinary tract symptoms (LUTS) (Acute) Urgency of urination (Acute) History of prostate cancer (Acute) Medical History Pacemaker HTN (hypertension) Hx of hyperlipidemia Atrial fibrillation DM w/o complication type II, uncontrolled Surgical History History of knee surgery Family History Mother Diabetes Heart disease Father Heart disease Social History Smoking/Tobacco Use Status: Former Tobacco Use Quit Date: 02/20/73 Smoking risk assessment performed?: Yes Alcohol Intake: current Alcohol Intake frequency: holidays/special occasions only Drug use: Never Substance use type: does not use Housing: house Do you feel safe at home: Yes Do you feel safe in your relationship?: Yes
[2024-09-15] MEDS: hydrOXYzine HCL 25 MG TAB PO (04:14)
--- NOTE | 2024-09-15 05:24 | NUR.NOTE ---
I was in patient's chart after patient was discharged in order to submit referral to pcp for bilateral rash to lower extremities.
== END 2024-09-15 04:29 | disposition home or self-care (01) ==
PROVIDERS: Emergency Provider Student in an Organized Health Care Education/Training Program
DX: L95.9 Vasculitis limited to the skin, unspecified (principal)
CPT/HCPCS: 99283; 99284; J7512

== ENCOUNTER 2024-09-26 13:39 | Outpatient (CLI) | payer MEDICARE, BC, SELFPAY | END 2024-09-26 13:40 | disposition home or self-care (01) | LOC: LBO 13:40 | PROVIDERS: Visit Provider Physician Assistant | DX: C61 Malignant neoplasm of prostate (principal) | CPT/HCPCS: 36415; 84153 ==